=== PATIENT | female | born 1955 | race Caucasian/White ===

== ENCOUNTER → 2017-11-23 14:17 | Outpatient (CLI) | payer MEDICAID, SELFPAY ==
--- NOTE | 2017-11-23 16:11 | DI.REPORT_ITS ---
SYMPTOM/DIAGNOSIS: RT FOOT PAIN, M79.671 RIGHT FOOT: The patient is status post talonavicular fusion. Compression screw is in place. The distal portion of an intramedullary tibial adilene is identified and protrudes through the base of the calcaneus. Fusion of the talocalcaneal joint is evident. There is soft tissue swelling over the lateral portion of the foot at the level of the metatarsal phalangeal joint. Post surgical changes involving the heads of the fourth and fifth metatarsals are identified. There is no evidence of a superimposed acute fracture or dislocation.
== END ==
PROVIDERS: PCP Family Medicine; Visit Provider Podiatrist Foot & Ankle Surgery
DX: M79.671 Pain in right foot (principal); Z98.1 Arthrodesis status
CPT/HCPCS: 73630

== ENCOUNTER → 2017-12-03 16:53 | Outpatient (REF) | payer MEDICAID, SELFPAY | LOC: NCHCN 16:53 | PROVIDERS: PCP Family Medicine; Visit Provider Family Medicine | DX: R10.9 Unspecified abdominal pain (principal) | CPT/HCPCS: 87086 ==

== ENCOUNTER → 2017-12-15 01:57 | Outpatient (CLI) | payer MEDICAID, SELFPAY ==
--- NOTE | 2017-12-15 15:15 | DI.REPORT_ITS ---
SYMPTOMS/DIAGNOSIS: PAIN IN LEFT FOOT, M79.672 LEFT FOOT: The bony structures are normally mineralized. There is no evidence of a fracture or dislocation. Multiple sesamoid bones are demonstrated adjacent to the head of the 1st metatarsal. There are minimal degenerative changes involving the 1st metatarsophalangeal joint and note is made of a small calcaneal spur.
== END ==
PROVIDERS: PCP Family Medicine; Visit Provider Podiatrist Foot & Ankle Surgery
DX: M79.672 Pain in left foot (principal); M77.32 Calcaneal spur, left foot; M25.872 Other specified joint disorders, left ankle and foot; M19.072 Primary osteoarthritis, left ankle and foot
CPT/HCPCS: 73630

== ENCOUNTER 2018-03-25 18:05 | Outpatient (REF) | payer MEDICAID, SELFPAY | END 2018-03-25 18:25 | LOC: NCHCN 18:05 | PROVIDERS: PCP Family Medicine; Visit Provider Family Medicine | DX: R10.9 Unspecified abdominal pain (principal) | CPT/HCPCS: 87086 ==

== ENCOUNTER 2018-05-20 17:17 | Outpatient (REF) | payer MEDICAID, SELFPAY | END 2018-05-20 17:37 | LOC: NCHCN 17:17 | PROVIDERS: PCP Family Medicine; Visit Provider Family Medicine | DX: R10.9 Unspecified abdominal pain (principal) | CPT/HCPCS: 87086 ==

== ENCOUNTER 2018-07-15 16:43 | Outpatient (REF) | payer MEDICAID, SELFPAY ==
[2018-07-15 20:05] LABS: Bacteria Rare HPF (Negative); C & S Indicated? No; Casts Negative LPF (Negative); Crystals Negative HPF (Negative); Epithelial Cells Rare HPF (Negative); Mucus Negative (Negative); Other Cells Negative (Negative); RBC 0-2 (0-2)
[2018-08-10 16:29] LABS: Propoxyphene (Darvon) Negative
== END 2018-07-15 17:03 ==
LOC: NCHCN 16:43
PROVIDERS: PCP Family Medicine; Visit Provider Family Medicine
DX: N39.0 Urinary tract infection, site not specified (principal)
CPT/HCPCS: 82542; 81015

== ENCOUNTER 2018-12-07 15:12 | Outpatient (REF) | payer MEDICAID, SELFPAY ==
[2018-12-07 20:21] LABS: BUN 11 mg/dL (7-18); CREATININE 0.67 mg/dL (0.55-1.02)
== END 2018-12-07 15:32 ==
LOC: NCHCN 15:12
PROVIDERS: PCP Family Medicine; Visit Provider Nurse Practitioner Psychiatric/Mental Health
DX: F41.9 Anxiety disorder, unspecified (principal); F43.10 Post-traumatic stress disorder, unspecified
CPT/HCPCS: 84520; 82565

== ENCOUNTER 2018-12-24 12:11 | Emergency (ER) | payer MEDICAID, SELFPAY ==
[2018-12-24 12:44] VITALS: BP 131/72; PULSE 80; RESP 18; TEMP 36.9; O2SAT 95
--- NOTE | 2018-12-24 13:10 | DI.RAD_ITS ---
SYMPTOM/DIAGNOSIS: FELL, ANTERIOR PAIN LEFT KNEE: Three views were obtained. There is narrowing of the medial tibiofemoral cartilaginous joint space. Marginal osteophyte formation noted involving the joints of the knee. There may be a knee joint effusion. No evidence of acute fracture.
--- NOTE | 2018-12-24 13:11 | W.ED.GENAD ---
Discharge Plan Disposition Patient Disposition: HOME Condition: Improving Discharge Details Chief Complaint: Orthopedic Clinical Impression: Osteoarthritis of knee Primary Care Provider: Jaquelin Hastings V ED Provider: Jonathon Plunkett Home Meds and New Rx's Prescriptions: Continued multivitamin 1 EACH capsule 1 ea PO DAILY RF: 0 lactulose 20 GM/30 ML solution 45 g PO BID RF: 0 Narcan 4 MG spray,non-aerosol 4 mg NS PRN Qty: 2 RF: 0 Loratadine 10 MG TAB.RAPDIS 10 mg PO DAILY RF: 0 methadone 10 MG tablet 40 mg PO .Q EARLY AFTERNOON RF: 0 methadone 10 MG tablet 50 mg PO TID RF: 0 ondansetron HCl 4 MG tablet 4 mg PO DIRECTED PRNRF: 0 oxycodone 15 MG tablet 30 mg PO QID PRNRF: 0 meclizine 25 MG tablet 25 mg PO DAILY PRNRF: 0 albuterol sulfate 8.5 GM HFA aerosol inhaler 2 puff Inhalation QID PRN PRNRF: 0 diclofenac sodium [Voltaren] 100 GM gel 1 ea Topical DIRECTED RF: 0 clonazepam [Klonopin] 0.5 mg Tablet 0.5 mg PO BID PRNRF: 0 clonazepam [Klonopin] 0.5 mg Tablet 0.5 mg PO QID RF: 0 mirtazapine 7.5 mg Tablet 7.5 mg PO QHS RF: 0 nicotine 14 mg/24 hr Patch 24 Hour 1 patch TRANSDERMAL DAILY RF: 0 Discharge Instructions Instructions: Hinged Knee Brace (ED) Additional Instructions: May use crutches as needed. Wear hinged knee brace for comfort and stability. We have referred you to orthopedics given Dr. Diop's recent jail. Please call the office at [phone] for an appointment time. Continue your regular medications including Voltaren and oral medications. May apply ice to area to reduce discomfort. Discharge Data Discharge Date/Time-TO BE ENTERED AT DEPARTURE: 12/24/18 14:31 Medical Decision Making 63-year-old female presents from home stating that she is had 3 falls onto a flexed left knee, landing on the patella over the past 2 weeks. Now with ongoing pain. States she recently missed joint injection with Dr. Diop as she was recovering from abdominal surgery which was uneventful. She arrives with normal vital signs, diffuse anterior tenderness over the left knee, and no evidence of motor or sensory dysfunction. X-ray reveals degenerative arthritic changes without evidence of fracture or malalignment. No effusion appreciated. May have a component of sciatica, most consistent with exacerbation of arthritis, particularly given the patient's recent missed joint injection. She has long-standing chronic pain and is on liberal amounts of outpatient opiates. She also does take diclofenac gel. Patient provided with hinged knee brace and crutches to be used as needed for crutch walking. We will refer her to [facility] orthopedics given Dr. Diop's recent jail. [facility] General Mode of arrival: ambulatory. Date/Time Provider Initiated Documentation: 12/24/18 12:58. Limitations to Documentation: no limitations. History of Present Illness described as moderate, Quality is described as dull, and is localized to the lower extremity. Patient reports no radiation. Patient started experiencing this day(s) and it has been constant. Rest improves symptom(s), Movement worsens symptoms . Patient notes no other symptoms.; denies syncope and weakness. Patient did receive the following treatments prior to arrival, other (Home analgesics) Related Data Home Medications Medication Instructions Recorded Confirmed albuterol sulfate 2 puff INHALATION QID PRN PRN 05/12/13 12/24/18 diclofenac sodium [Voltaren] 1 ea TOPICAL DIRECTED 05/12/13 12/24/18 meclizine 25 mg PO DAILY PRN 05/12/13 12/24/18 methadone 40 mg PO .Q EARLY AFTERNOON 05/12/13 12/24/18 methadone 50 mg PO TID 05/12/13 12/24/18 ondansetron HCl 4 mg PO DIRECTED PRN 05/12/13 12/24/18 oxycodone 30 mg PO QID PRN 05/12/13 12/24/18 Loratadine 10 mg PO DAILY tab-cap 12/16/17 12/24/18 Narcan 4 mg NS PRN #2 spray 12/16/17 12/24/18 lactulose 45 g PO BID ml 12/16/17 12/24/18 multivitamin 1 ea PO DAILY 12/16/17 12/24/18 clonazepam [Klonopin] 0.5 mg PO BID PRN 12/24/18 12/24/18 clonazepam [Klonopin] 0.5 mg PO QID 12/24/18 12/24/18 mirtazapine 7.5 mg PO QHS 12/24/18 12/24/18 nicotine 1 patch TRANSDERMAL DAILY 12/24/18 12/24/18 Allergies Allergy/AdvReac Type Severity Reaction Status Date / Time venom-honey bee Allergy Severe Unverified 12/24/18 12:51 [bee venom (honey bee)] codeine [Codeine] Allergy Intermediate Skin Rash Unverified 12/24/18 12:51 gabapentin [From Neurontin] AdvReac Intermediate gi upset Unverified 12/24/18 12:51 morphine AdvReac Intermediate n/v/d Unverified 12/24/18 12:51 pregabalin [From Lyrica] AdvReac Intermediate gi upset Unverified 12/24/18 12:51 General Stated Complaint: Orthopedic MUSA: 3 Review of Systems Review of Systems 6 systems reviewed and otherwise negative. No neck/back discomfort. No headache. Denies syncope or chest pain. Recovering from esophageal surgery 6 weeks ago. [facility] Medical History Anxiety Asthma not active Bilateral radicular pain upper extremities Chronic pain Fibromyalgia GERD (gastroesophageal reflux disease) Hepatitis C Hypertension Hyperthyroidism Irritable bowel syndrome (IBS) Kidney stones Sleep apnea Surgical History Cholecystectomy (~12/2013) Social History Smoking/Tobacco Use Status: Current every day Tobacco Type: cigarettes Alcohol Intake: never Drug use: Daily Details: CBD oil with THC Do you feel safe at home: Yes Do you feel safe in your relationship?: Yes Exam Narrative Exam Narrative: GEN: awake, alert, oriented 3. Pleasant, well groomed, interactive. HEAD: Normocephalic, atraumatic ENT: Mucous membranes moist, oropharynx unremarkable, External ear exam unremarkable EYES: PERRL, EOMI NECK: Full ROM, no KARINA, no menigismus CHEST/RESP: Nontender ABDOMEN: Soft, nontender, no mass. +Bowel sounds EXT: Full ROM, no edema, no rash. Left knee with anterior tenderness. No laxity. Motor rated 5 out of 5 and sensation is intact throughout including saddle distribution Neuro: Grossly normal neurologic exam, conversant, interactive. Psych: Speech fluent, thoughts congruent, affect normal Course Vital Signs Temperature 36.9 C 12/24/18 12:44 Pulse 80 12/24/18 12:44 Respiratory Rate 18 12/24/18 12:44 Blood Pressure 131/72 12/24/18 12:44 Pulse Oximetry 95 12/24/18 12:44 Temperature 36.9 C 12/24/18 12:44 Temperature Source Temporal Artery Scan 12/24/18 12:44 Pulse 80 12/24/18 12:44 Respiratory Rate 18 12/24/18 12:44 Respiratory Effort Non-Labored 12/24/18 12:49 Blood Pressure 131/72 12/24/18 12:44 Blood Pressure Position Sitting 12/24/18 12:44 Pulse Oximetry 95 12/24/18 12:44 Oxygen Delivery Method Room Air 12/24/18 12:44 Oxygen Flow Rate 0 12/24/18 12:44 Pain Level 9 12/24/18 12:44
--- NOTE | 2018-12-24 13:57 | DI.VRAD_ITS ---
EXAM: XR Left Knee EXAM DATE/TIME: 12/24/2018 1:11 PM CLINICAL HISTORY: 63 years old, female; Other: Fall, anterior pain TECHNIQUE: Imaging protocol: XR Left knee. Views: 3 views. COMPARISON: CR LEFT KNEE 3 VIEW COMPLETE 01/27/2017 2:59 PM FINDINGS: Mild medial joint space narrowing consistent with early degenerative arthritis in keeping with the patient's age. The bony structures are in anatomic alignment. No fracture is present. No radiopaque foreign body is identified. The joint spaces are well maintained. IMPRESSION: No evidence of acute bony abnormality. Dictated and Authenticated by: Sam Byrne MD. Ordering:HIRO Holt MD
[2018-12-24 14:32] VITALS: BP 131/72; PULSE 80; RESP 18; TEMP 36.9; O2SAT 95
== END 2018-12-24 14:31 | disposition home or self-care (01) ==
PROVIDERS: Emergency Provider Emergency Medicine; PCP Family Medicine
DX: M17.12 Unilateral primary osteoarthritis, left knee (principal); W19.XXXA Unspecified fall, initial encounter; R29.6 Repeated falls; I10 Essential (primary) hypertension
CPT/HCPCS: 29505; 73562; 99283; E0114; L1820

== ENCOUNTER 2019-01-30 01:08 | Outpatient (CLI) | payer MEDICAID, SELFPAY ==
--- NOTE | 2019-01-30 09:55 | DI.MRI_ITS ---
EXAM: MR LOWER JOINT LT WO CLINICAL HISTORY: acute meniscal vs chondral injury, internal derangement lt knee, M23.92. TECHNIQUE: Multiplanar multisequence MRI was performed. COMPARISON: No exams were available for comparison FINDINGS: MR examination knee was performed according to the usual protocol. There is a small knee joint effus ion. There is abnormal signal of the posterior aspect the proximal tibia consistent with a bony trab ecular injury and subtle areas abnormal signal are also seen in the medial femoral condyle posteriorl y. Mildly abnormal signal also seen in the patella. Articular cartilage of medial and lateral tibial femoral joints appears fairly symmetrically thinned. Thinning of patellar articular cartilage also noted particularly of the inferior pole of the patell a. Cruciate ligaments appear intact with mildly abnormal signal and anterior cruciate, nonspecific. Lateral meniscus appears intact. Medial meniscus is torn in the body and posterior horn and probabl y at the posterior attachment as well. No significant collateral ligament injury seen. IMPRESSION: Findings consistent with bony trabecular injuries of tibia and medial femoral condyle posteriorly, tr icompartment degenerative change, nondisplaced medial meniscal tear.
== END 2019-01-30 01:28 ==
PROVIDERS: PCP Family Medicine; Visit Provider Student in an Organized Health Care Education/Training Program
DX: M25.562 Pain in left knee (principal); M23.92 Unspecified internal derangement of left knee; S83.242A Other tear of medial meniscus, current injury, left knee, initial encounter; M17.12 Unilateral primary osteoarthritis, left knee; M79.672 Pain in left foot; M19.072 Primary osteoarthritis, left ankle and foot
CPT/HCPCS: 73721

== ENCOUNTER 2019-01-30 01:10 | Outpatient (CLI) | payer MEDICAID, SELFPAY ==
--- NOTE | 2019-01-30 10:15 | DI.RAD_ITS ---
EXAM: XR FOOT LT COMPLETE INDICATION: LT FOOT PAIN, M79.672. COMPARISON: No exams were available for comparison TECHNIQUE: 2D digital imaging was performed. FINDINGS: Three views were obtained. There is a prominent osteophyte of the site of attachment of the plantar fascia on the calcaneus. Minimal degenerative changes the midfoot and IP joints noted. No other sig nificant bony abnormality seen. IMPRESSION: Mild DJD of midfoot and forefoot joints.
== END 2019-01-30 01:30 ==
PROVIDERS: PCP Family Medicine; Visit Provider Family Medicine
DX: M79.672 Pain in left foot (principal); M19.072 Primary osteoarthritis, left ankle and foot
CPT/HCPCS: 73630

== ENCOUNTER 2019-10-26 00:18 | Outpatient (CLI) | payer MEDICAID, SELFPAY ==
--- NOTE | 2019-10-26 | DI.MAMMO_ITS ---
EXAM: MAMMO SCREENING CLINICAL HISTORY: SCREENING, Z12.31, PREVENTATIVE, Z00.00 TECHNIQUE: Mammograms were interpreted according to the usual protocol including computer analysis w [employer] CAD system, tomosynthesis and C-view imaging. COMPARISON: 2010 and 2016 FINDINGS: The breasts are composed of mainly fatty density , Breast Density category A. No suspicious masses or suspicious microcalcifications are seen. No skin thickening or abnormal axillary lymph nodes are seen. There has been no significant change from prior exams. IMPRESSION: BI-RADS Category 1, negative. Yearly screening mammography is recommended. Breast Density Category A, fatty density.
--- NOTE | 2019-10-26 13:00 | DI.CTLCSR_ITS ---
EXAM: CT CHEST LUNG CANCER SCREEN CLINICAL HISTORY: The patient reportedly has a History of Smoking 30 pack years and presently smokes or has quit the past 15 years. TECHNIQUE: Imaging Protocol: Axial computed tomography images with coronal and sagittal reformatted images were created and reviewed COMPARISON: CT CHEST - LUNG CANCER SCREENING from 10/23/2016 FINDINGS: Tracheobronchial tree: Patent where visualized. Mediastinum and Shira: Stable small mediastinal lymph nodes. Pulmonary parenchyma: No consolidation. [id number] centrilobular and paraseptal emphysematous changes greater in the upper lobes.. Lung Nodules: New 5 millimeter nodule in the medial right upper lobe. Pleura: No effusion or pneumothorax. Heart: The heart is not dilated. Minimal coronary artery calcifications are seen. Aorta: Thoracic aorta non-dilated.Minimal calcification. Upper abdomen: Status post cholecystectomy. Bones: Severe degenerative changes in the lower cervical spine and lower thoracic spine. Scoliosis. Soft Tissues: Unremarkable. IMPRESSION: New 5 millimeter nodule in the medial right upper lobe. Lung RADS Cat 3 - Probably Benign: Probably benign finding(s) -6 month follow-up suggested; include n odules with a low likelihood of becoming a clinically active cancer. Lung-RADS 1.0 CATEGORIES: Category 0 - Prior chest CT exam(s) being located for comparison. Category 1 - Annual screening in 12 months. No nodules or definitely benign nodules. Category 2 - Annual screening in 12 months. Benign appearance. Nodules with low likelihood of becomin g active cancer. Category 3 - 6-month follow-up. Probably benign. Short-term follow-up suggested. Nodules with low lik elihood of becoming active cancer. Category 4A - 3-month follow-up and CT/PET if >8 mm in size. Suspicious finding. Findings which requi re additional testing. Category 4B - Findings which require additional testing and tissue sampling. Suspicious finding. C Added to Any of the Above - History of prior lung cancer screening. S Added to Any of the Above - Significant unexpected other finding. RADIATION DOSE DELIVERED: Total DLP DATA REPOSITORY: All CT scans at this facility are submitted to the National Radiology Data Registry (NRDR) Dose Index Registry (DIR) with the [employer] (ACR). RADIATION OPTIMIZATION: All CT scans at this facility use at least one of these dose optimization te chniques: automated exposure control; mA and/or kV adjustment per patient size (includes targeted exa ms where dose is matched to clinical indication); or iterative reconstruction.
--- NOTE | 2019-10-26 13:20 | DI.RAD_ITS ---
EXAM: XR WRIST LT COMPLETE CLINICAL HISTORY: WRIST JOINT PAIN LT, M25.532. TECHNIQUE: 2D digital imaging was performed. COMPARISON: No exams were available for comparison FINDINGS: BONES: No acute fracture is present. No bony destructive lesion is seen. JOINTS: The carpal bones are normally aligned. There are mild degenerative changes at the distal ra dial ulnar joint, radiocarpal joint and 1st carpal metacarpal joint. SOFT TISSUE: Normal. IMPRESSION: Mild degenerative changes. DATA REPOSITORY: RADIATION DOSE DELIVERED:
--- NOTE | 2019-10-26 13:20 | DI.RAD_ITS ---
EXAM: XR FOREARM LT CLINICAL HISTORY: WRIST JOINT PAIN LT, M25.532. TECHNIQUE: 2D digital imaging was performed. COMPARISON: No exams were available for comparison FINDINGS: BONES: No acute fracture is present. No bony destructive lesion is seen. Visualized portion of elbow and wrist joints are unremarkable. SOFT TISSUE: Normal. IMPRESSION: Unremarkable radiographs of the left forearm. DATA REPOSITORY: RADIATION DOSE DELIVERED:
== END 2019-10-26 00:38 ==
PROVIDERS: PCP Family Medicine; Visit Provider Family Medicine
DX: Z12.31 Encounter for screening mammogram for malignant neoplasm of breast (principal); M25.532 Pain in left wrist; M19.042 Primary osteoarthritis, left hand; Z12.2 Encounter for screening for malignant neoplasm of respiratory organs; R91.1 Solitary pulmonary nodule; J43.8 Other emphysema
CPT/HCPCS: 77063; 77067; G0297; 73090; 73110

== ENCOUNTER 2020-05-09 18:31 | Outpatient (REF) | payer MEDICAID, SELFPAY ==
[2020-05-09 19:35] LABS: Bilirubin Negative (Negative); Blood Negative (Negative); Clarity Clear (Clear); Glucose Negative (Negative); Ketones Negative (Negative); Leukocyte Esterase Small (Negative); Nitrite Negative (Negative)
[2020-05-09 19:45] LABS: Bacteria Few HPF (Negative); C & S Indicated? No/Sq. Contamination; Casts Negative LPF (Negative); Crystals Negative HPF (Negative); Epithelial Cells Moderate HPF (Negative); Mucus Negative (Negative); Other Cells Negative (Negative); RBC Negative HPF (0-2)
[2020-05-16 08:34] LABS: Codeine Negative ng/mL (Cutoff: 25); Dihydrocodeine Negative ng/mL (Cutoff: 25); Hydrocodone Negative ng/mL (Cutoff: 25); Hydromorphone Negative ng/mL (Cutoff: 25); Morphine Negative ng/mL (Cutoff: 25); Naloxone Negative ng/mL (Cutoff: 25); Norhydrocodone Negative ng/mL (Cutoff: 25); Noroxycodone 12040 ng/mL (Cutoff: 25); Noroxymorphone 406 ng/mL (Cutoff: 25); Opiates Interpretation Positive.
== END 2020-05-09 18:51 ==
LOC: NCHCN 18:31
PROVIDERS: PCP Family Medicine; Visit Provider Family Medicine
DX: N39.0 Urinary tract infection, site not specified (principal); Z51.81 Encounter for therapeutic drug level monitoring
CPT/HCPCS: 80361; 80362; 81003; 81015

== ENCOUNTER 2020-07-24 12:31 | Outpatient (REF) | payer MEDICAID, SELFPAY ==
[2020-07-24 16:03] LABS: Bilirubin Negative (Negative); Blood Negative (Negative); Clarity Clear (Clear); Glucose Negative (Negative); Ketones Negative (Negative); Leukocyte Esterase Negative (Negative); Nitrite Negative (Negative); Specific Gravity 1.025 (1.005-1.025)
== END 2020-07-24 12:32 | disposition home or self-care (01) ==
LOC: NCHCN 12:31
PROVIDERS: PCP Family Medicine; Visit Provider Family Medicine
DX: N39.0 Urinary tract infection, site not specified (principal)
CPT/HCPCS: 81003

== ENCOUNTER 2020-07-30 01:31 | Outpatient (CLI) | payer MEDICAID, SELFPAY ==
--- NOTE | 2020-07-30 13:00 | DI.CT_ITS ---
EXAM: CT CHEST WO CLINICAL HISTORY: F/U LUNG NODULE, R91.8, 6 MONTH FOLLOW UP TECHNIQUE: Imaging Protocol: Axial computed tomography images with coronal and sagittal reformatted images were created and reviewed COMPARISON: CT CT CHEST LUNG CANCER SCREEN from 10/26/2019 FINDINGS: Tracheobronchial tree: Patent where visualized. Pulmonary parenchyma: No consolidation or dominant measurable mass. [id number] centrilobular an d paraseptal emphysema. Lung Nodules: There is against seen in nodule in the right upper lobe which now measures 6.5 mm. Thi s compares with 5.4 mm on the prior examination. No new pulmonary nodules are identified. Mediastinum and Shira: Stable small mediastinal lymph nodes. Small hiatal hernia. Pleura: No effusion or pneumothorax. Heart: The heart is not dilated. Mild coronary artery calcification. No pericardial effusion. Aorta: Thoracic aorta non-dilated.Mild atherosclerosis. Upper abdomen: Fatty liver. Status post cholecystectomy. Soft Tissues: Unremarkable. Bones: Within normal limits. IMPRESSION: 1. Slight interval increase in size of the right upper lobe pulmonary nodule which now measures 6.5 m m. No other pulmonary nodules are identified. 2. Mild to moderate pulmonary emphysema. 3. Fatty liver. Lung RADS Cat 4A - Suspicious: Findings for which additional diagnostic testing and/or tissue samplin g recommended Lung-RADS 1.0 CATEGORIES: Category 0 - Prior chest CT exam(s) being located for comparison. Category 1 - Annual screening in 12 months. No nodules or definitely benign nodules. Category 2 - Annual screening in 12 months. Benign appearance. Nodules with low likelihood of becomin g active cancer. Category 3 - 6-month follow-up. Probably benign. Short-term follow-up suggested. Nodules with low lik elihood of becoming active cancer. Category 4A - 3-month follow-up and CT/PET if >8 mm in size. Suspicious finding. Findings which requi re additional testing. Category 4B - Findings which require additional testing and tissue sampling. Suspicious finding. Modifier S- Potentially clinically significant finding. (Non lung cancer) RADIATION DOSE DELIVERED: 806.72mGy.cm Total DLP 806.72mGy.cm Total DLP 806.72mGy.cm Total DLP DATA REPOSITORY: All CT scans at this facility are submitted to the National Radiology Data Registry (NRDR) Dose Index Registry (DIR) with the [employer] (ACR). RADIATION OPTIMIZATION: All CT scans at this facility use at least one of these dose optimization te chniques: automated exposure control; mA and/or kV adjustment per patient size (includes targeted exa ms where dose is matched to clinical indication); or iterative reconstruction.
--- NOTE | 2020-07-30 13:26 | DI.RAD_ITS ---
EXAM: XR LUMBAR SPINE COMPLETE CLINICAL HISTORY: LOW BACK PAIN, M54.5. TECHNIQUE: 2D digital imaging was performed. COMPARISON: No exams were available for comparison FINDINGS: There are 5 lumbar type vertebral bodies. No spondylolysis or spondylolisthesis. There is disc spac e narrowing at T12-L1, L1-L2 and L2-L3. Endplate osteophytes are seen throughout the lumbar spine. No acute fractures or subluxations are seen. Degenerative changes of the facets are seen in the lowe r lumbar spine. Vascular calcifications are present. Surgical clips are seen in the right upper rita drant of the abdomen. IMPRESSION: Moderately severe degenerative changes in the lumbar spine. DATA REPOSITORY: RADIATION DOSE DELIVERED:
== END 2020-07-30 01:51 ==
PROVIDERS: PCP Family Medicine; Visit Provider Family Medicine
DX: R91.1 Solitary pulmonary nodule (principal); M54.5 Low back pain; M51.37 Other intervertebral disc degeneration, lumbosacral region; J43.8 Other emphysema
CPT/HCPCS: 71250; 72110

== ENCOUNTER 2020-09-02 03:21 | Outpatient (CLI) | payer MEDICAID, SELFPAY ==
[2020-09-02 11:29] LABS: HCT 44.3 % (36.0-46.0); HGB 14.4 g/dL (11.2-15.7); MCH 30.5 pg (27.0-33.0); MCHC 32.5 % (32.0-36.0); MCV 93.9 fL (80-95); MPV 9.5 fL (8.0-11.0); Platelet Count 173 10^3/uL (130-400); RBC 4.72 10^6/uL (3.93-5.22); RDW 12.8 % (11.7-14.6); RDW-SD 44.4 fL; WBC 7.73 10^3/uL (4.4-10.8)
[2020-09-02 11:37] LABS: Hemoglobin A1C 5.6 % (<5.7)
[2020-09-02 12:36] LABS: ALT 33 U/L (14-59); AST 27 U/L (15-37); Albumin 3.7 g/dL (3.4-5.0); Alkaline Phosphatase 96 U/L (46-116); Anion Gap 4.1 mmol/L (3-11); BUN 14 mg/dL (7-18); Bilirubin, Total 0.3 mg/dL (0.2-1.0); C-Reactive Protein 1.84 mg/dL (0.0-0.3); CO2 33.9 mmol/L (21.0-32.0); CREATININE 0.8 mg/dL (0.55-1.02); Calcium 9.3 mg/dL (8.5-10.1); Chloride 103 mmol/L (98-107); Glucose 102 mg/dL (74-106); Potassium 4.3 mmol/L (3.5-5.1); Sodium 141 mmol/L (136-145); TSH (W/Ref FT4) 2.63 uIU/mL (0.36-3.74)
[2020-09-02 14:57] LABS: ESR 16 mm/hr (0-30)
== END 2020-09-02 03:22 | disposition home or self-care (01) ==
LOC: LBO 03:22
PROVIDERS: PCP Family Medicine; Visit Provider Family Medicine
DX: R73.03 Prediabetes (principal); E05.90 Thyrotoxicosis, unspecified without thyrotoxic crisis or storm; R10.12 Left upper quadrant pain; R07.81 Pleurodynia
CPT/HCPCS: 36415; 80053; 85027; 85652; 83036; 84443; 86140

== ENCOUNTER 2020-11-07 00:52 | Outpatient (CLI) | payer MEDICAID, SELFPAY ==
--- NOTE | 2020-11-07 | DI.CTLCSR_ITS ---
Exam(s) CT CHEST LUNG CANCER SCREEN EXAM: CT CHEST LUNG CANCER SCREEN CLINICAL HISTORY: SCREENING FOR LUNG CA, CURRENT SMOKER, F17.210. TECHNIQUE: Imaging Protocol: Low Dose Technique CONTRAST MATERIAL: None COMPARISON: CT CT CHEST LUNG CANCER SCREEN from 10/26/[address] CHEST LUNG CANCER SCREEN from 10/26/[address] CHEST WO from 07/30/[address] CHEST WO from 07/30/2020 FINDINGS: CHEST: LUNGS: Size of the nodule in the medial aspect of the right upper lobe exhibits perhaps minimal if an y significant increase in size when compared to October 2019 and July 2020. There are no other right l barbara nodules,, however, there are mild increased markings in the subpleural posterior basal segment ri ght lower lobe, more so than previous. No pleural effusion. In the opposite-left lung there are no significant focal findings in the upper lobe and lingular segm ent. There are mild subpleural benign-appearing increased markings in the medial base posterior basa l segment. No associated pleural effusion MEDIASTINUM: There is no obvious hilar nor mediastinal adenopathy. CARDIAC: Heart size is normal. There is no pericardial effusion.Caliber of the thoracic aorta is wit hin normal limits. OTHER: OSSEOUS: No significant osseous lesions.. IMPRESSION: 1. Relatively stable appearance of the solitary small nodular density in the medial aspect of the rig ht upper lobe with minimal change from October 2019 and July 2020. recommend follow-up CT scan in 6 mon ths. 2. There are new increased subpleural markings in the posterior basal segment of the right lower lobe which have benign appearance, possibly infectious. Lesser amount of the same in the posterior basal segment of the left lower lobe. There are no pleural effusions. No intrathoracic adenopathy 3. Lung RADS Cat 3 - Probably Benign: Probably benign finding(s) - short term follow-up suggested; in clude nodules with a low likelihood of becoming a clinically active cancer. Lung-RADS 1.0 CATEGORIES: Category 0 - Prior chest CT exam(s) being located for comparison. Category 1 - Annual screening in 12 months. No nodules or definitely benign nodules. Category 2 - Annual screening in 12 months. Benign appearance. Nodules with low likelihood of becomin g active cancer. Category 3 - 6-month follow-up. Probably benign. Short-term follow-up suggested. Nodules with low lik elihood of becoming active cancer. Category 4A - 3-month follow-up and CT/PET if >8 mm in size. Suspicious finding. Findings which requi re additional testing. Category 4B - Findings which require additional testing and tissue sampling. Modifier S- Potentially clinically significant findings (non lung cancer) RADIATION DOSE DELIVERED: 68.71mGy.cm Total DLP 1.84mGy CTDIvol DATA REPOSITORY: All CT scans at this facility are submitted to the National Radiology Data Registry (NRDR) Dose Index Registry (DIR) with the [employer] (ACR). RADIATION OPTIMIZATION: All CT scans at this facility use at least one of these dose optimization te chniques: automated exposure control; mA and/or kV adjustment per patient size (includes targeted exa ms where dose is matched to clinical indication); or iterative reconstruction.
== END 2020-11-07 01:12 ==
PROVIDERS: PCP Family Medicine; Visit Provider Family Medicine
DX: Z12.2 Encounter for screening for malignant neoplasm of respiratory organs (principal); R91.8 Other nonspecific abnormal finding of lung field; F17.210 Nicotine dependence, cigarettes, uncomplicated
CPT/HCPCS: 71271

== ENCOUNTER 2021-01-03 16:12 | Outpatient (REF) | payer MEDICAID, SELFPAY ==
[2021-01-08 10:29] LABS: Codeine Negative ng/mL (Cutoff: 25); Dihydrocodeine Negative ng/mL (Cutoff: 25); Hydrocodone Negative ng/mL (Cutoff: 25); Hydromorphone Negative ng/mL (Cutoff: 25); Morphine Negative ng/mL (Cutoff: 25); Naloxone Negative ng/mL (Cutoff: 25); Norhydrocodone Negative ng/mL (Cutoff: 25); Noroxycodone 8772 ng/mL (Cutoff: 25); Noroxymorphone 383 ng/mL (Cutoff: 25); Opiates Interpretation Positive.
== END 2021-01-03 16:13 | disposition home or self-care (01) ==
LOC: NCHCN 16:12
PROVIDERS: PCP Family Medicine; Visit Provider Family Medicine
DX: G89.4 Chronic pain syndrome (principal); Z51.81 Encounter for therapeutic drug level monitoring
CPT/HCPCS: 80361; 80362; 80365

== ENCOUNTER 2021-04-10 02:16 | Outpatient (CLI) | payer MEDICAID, SELFPAY ==
--- NOTE | 2021-04-10 12:30 | DI.CT_ITS ---
Exam(s) CT CHEST WO EXAM: CT CHEST WO CLINICAL HISTORY: LUQ PAIN,R10.12,LUNG NODULE,R91.8 TECHNIQUE: Imaging Protocol: Axial computed tomography images with coronal and sagittal reformatted images were created and reviewed CONTRAST MATERIAL: Intravenous: Omnipaque 350 Contrast volume:structured data in ml. COMPARISON: CT CHEST - LUNG CANCER SCREENING from 10/23/[address] CHEST LUNG CANCER SCREEN from 10/26/[address] CHEST LUNG CANCER SCREEN from 10/26/[address] CHEST WO from 07/30/[address] CHEST LUNG CANCER SCREEN from 11/07/2020 FINDINGS: Tracheobronchial tree: No bronchiectasis or mucous plugging. Mediastinum and Shira: No dominant adenopathy or fluid collection. Pulmonary parenchyma: Mild emphysematous changes. No consolidation or dominant measurable mass. No v isible change in size or appearance of the right upper lobe nodule, measuring 7 x 6 x 5 millimeters c ompared with the most recent exam. Size is increased when compared with 2019... Pleura: No effusion or pneumothorax. Heart: The heart is not dilated. No coronary artery calcifications are seen. Aorta: Thoracic aorta non-dilated. Upper abdomen: Fatty liver. Prior cholecystectomy. Large quantity of stool visible in the visualiz ed portions of the colon. Lymph nodes: Stable small mediastinal and axillary lymph nodes. Bones: Degenerative disc changes, greatest in the lower cervical and upper lumbar region. Small hiatal hernia. Soft tissues: Unremarkable. IMPRESSION: Stable size and appearance of right upper lobe nodule.. Recommend follow-up low dose screening CT 6 months. BI-RADS Cat 3 - 6 month - Probably Benign Finding: Recommend follow-up imaging in 6 months RADIATION DOSE DELIVERED: 681.85mGy.cm Total DLP DATA REPOSITORY: All CT scans at this facility are submitted to the National Radiology Data Registry (NRDR) Dose Index Registry (DIR) with the [employer] (ACR). RADIATION OPTIMIZATION: All CT scans at this facility use at least one of these dose optimization te chniques: automated exposure control; mA and/or kV adjustment per patient size (includes targeted exa ms where dose is matched to clinical indication); or iterative reconstruction.
[2021-04-10 13:01] LABS: CREATININE 0.8 mg/dL (0.55-1.02); Vitamin B12 292 pg/mL (193-986)
--- NOTE | 2021-04-10 13:30 | DI.CT_ITS ---
Exam(s) CT ABDOMEN PELVIS W EXAM: CT ABDOMEN PELVIS W CLINICAL HISTORY: LUQ PAIN, R10.12. TECHNIQUE: Imaging Protocol: Axial computed tomography images with coronal and sagittal reformatted images were created and reviewed CONTRAST MATERIAL: Intravenous: Omnipaque 350 Contrast volume:100 ml Oral: no COMPARISON: CT RENAL COLIC WO CONTRAST from 08/23/2010 CT RENAL COLIC WO CONTRAST from 08/23/2010 FINDINGS: ABDOMEN: Lung Bases: Normal where visualized. Small hiatal hernia. Liver: Moderate fatty infiltration.. No measurable mass. Gallbladder and biliary tract: Status post cholecystectomy. No radiodense calculus. Mild biliary di latation, within normal limits status post cholecystectomy. Pancreas: Normal density, no abnormal calcifications or inflammatory process. Stomach: Small hiatal h ernia. Stomach not distended. Spleen: Normal. Kidneys: Normal size, contour and axis. No radiodense stones or obstructive uropathy. No masses seen. Small bilateral cysts. Adrenal glands: No masses seen. Abdominal Aorta: Abdominal portion non-dilated. Atherosclerotic changes. PELVIS: Bladder: No gross wall thickening. No calculi.No focal mass. Bowel: Large quantity of stool seen from the cecum through mid transverse colon. Distal colon is dec ompressed. Small amount of stool in the rectum. No obstruction or bowel wall thickening. Appendix n ormal. Peritoneal cavity: No ascites, collection or mesenteric inflammatory response. Bones: Degenerative disc changes. No compression fracture. Reproductive organs: Status post hysterectomy. Lymph nodes: Unremarkable. Impression: Increased quantity of stool in the right and transverse colon. No abnormal wall thickening or eviden ce of obstruction. Normal appendix. Fatty liver.. RADIATION DOSE DELIVERED: 1,227.58mGy.cm Total DLP DATA REPOSITORY: All CT scans at this facility are submitted to the National Radiology Data Registry (NRDR) Dose Index Registry (DIR) with the [employer] (ACR). RADIATION OPTIMIZATION: All CT scans at this facility use at least one of these dose optimization te chniques: automated exposure control; mA and/or kV adjustment per patient size (includes targeted exa ms where dose is matched to clinical indication); or iterative reconstruction.
[2021-04-10] MEDS: Omnipaque 350 MG/ML 100 ML BTL IJ (13:38)
== END 2021-04-10 02:36 ==
PROVIDERS: PCP Family Medicine; Visit Provider Family Medicine
DX: R10.12 Left upper quadrant pain (principal); K76.0 Fatty (change of) liver, not elsewhere classified; K44.9 Diaphragmatic hernia without obstruction or gangrene; K59.00 Constipation, unspecified; Z01.812 Encounter for preprocedural laboratory examination
CPT/HCPCS: 71250; 74177; 82565; 82607; J3490

== ENCOUNTER 2021-06-26 16:39 | Outpatient (REF) | payer MEDICAID, SELFPAY | END 2021-06-26 16:40 | disposition home or self-care (01) | LOC: NCHCN 16:39 | PROVIDERS: PCP Family Medicine; Visit Provider Family Medicine | DX: R10.9 Unspecified abdominal pain (principal); M54.59 Other low back pain; N39.0 Urinary tract infection, site not specified | CPT/HCPCS: 87086 ==

== ENCOUNTER 2021-09-16 18:41 | Outpatient (REF) | payer MEDICARE, MEDICAID, SELFPAY | END 2021-09-16 18:42 | disposition home or self-care (01) | LOC: NCHCN 18:41 | PROVIDERS: PCP Family Medicine; Visit Provider Family Medicine | DX: R30.0 Dysuria (principal) | CPT/HCPCS: 87086 ==

== ENCOUNTER → 2021-10-14 01:34 | Outpatient (CLI) | payer MEDICARE, MEDICAID, SELFPAY ==
--- NOTE | 2021-10-14 | DI.RAD_ITS ---
Exam(s) XR FOREARM RT EXAM: XR FOREARM RT CLINICAL HISTORY: LUMP, R22.9. TECHNIQUE: 2D digital imaging was performed of the left forearm. Two views were obtained. AP and l ateral views were obtained. COMPARISON: No exams were available for comparison FINDINGS: BONES: No acute fracture is present. No bony destructive lesion is seen. Visualized portion of elbow and wrist joints are unremarkable. SOFT TISSUE: No radiopaque foreign bodies are seen in the soft tissues. IMPRESSION: 1. Node acute abnormality. 2. If there is concern for soft tissue mass, an ultrasound or MRI should be considered for further ev aluation. DATA REPOSITORY: RADIATION DOSE DELIVERED:
== END ==
PROVIDERS: PCP Family Medicine; Visit Provider Family Medicine
DX: M79.631 Pain in right forearm (principal); R22.31 Localized swelling, mass and lump, right upper limb
CPT/HCPCS: 73090

== ENCOUNTER 2021-11-11 16:21 | Outpatient (REF) | payer MEDICARE, MEDICAID, SELFPAY ==
[2021-11-11 16:23] LABS: Calculated LDL 121 mg/dL (<100); Cholesterol 214 mg/dL (<200); HDL Cholesterol 32 mg/dL (40-60); Triglyceride 305 mg/dL (<150)
[2021-11-11 17:36] LABS: Hemoglobin A1C 5.8 % (<5.7)
[2021-11-12 10:57] LABS: Lyme Ab w Rflx to Lyme Confirm Negative (Negative)
[2021-11-17 21:29] LABS: Anaplasma phagocytophilum Negative (Negative); B. miyamotoi PCR Negative (Negative); Babesia divergens/MO-1 Negative (Negative); Babesia duncani Negative (Negative); Babesia microti Negative (Negative); Ehrlichia chaffeensis Negative (Negative); Ehrlichia ewingii/canis Negative (Negative); Ehrlichia muris eauclairensis Negative (Negative)
== END 2021-11-11 16:22 | disposition home or self-care (01) ==
LOC: NCHCN 16:21
PROVIDERS: PCP Family Medicine; Visit Provider Family Medicine
DX: W57.XXXA Bitten or stung by nonvenomous insect and other nonvenomous arthropods, initial encounter (principal); Z00.00 Encounter for general adult medical examination without abnormal findings; T14.8XXA Other injury of unspecified body region, initial encounter
CPT/HCPCS: 80061; 87798; 83036; 86618

== ENCOUNTER → 2021-11-14 00:34 | Outpatient (CLI) | payer MEDICARE, MEDICAID, SELFPAY ==
--- NOTE | 2021-11-14 | DI.CTLCSR_ITS ---
Exam(s) CT CHEST LUNG CANCER SCREEN EXAM: CT CHEST LUNG CANCER SCREEN CLINICAL HISTORY: SMOKER F17.210, NODULE R91.8, SCREENING FOR LUNG CANCER TECHNIQUE: Imaging Protocol: Axial computed tomography images with coronal and sagittal reformatted images were created and reviewed COMPARISON: CT CT CHEST WO from 04/10/2021 FINDINGS: Tracheobronchial tree: Patent where visualized. Pulmonary parenchyma: No consolidation or dominant measurable mass. Mild centrilobular emphysematous changes are present. Lung Nodules: There is again seen a nodule in the medial aspect of the right upper lobe measuring 0.8 x 0.6 x 0.6 cm. This compares to 0.7 x 0.6 x 0.5 cm. No new pulmonary nodules are present. Mediastinum and Shira: No dominant adenopathy or fluid collection. The esophagus is unremarkable.Small hiatal hernia is present. Thyroid gland: Unremarkable. Lymph nodes: Unremarkable. Pleura: No effusion or pneumothorax. Heart: The heart is not dilated. Mild coronary artery calcification. No pericardial effusion. Aorta: Thoracic aorta non-dilated.Mild atherosclerosis. Upper abdomen: Status post cholecystectomy. Soft Tissues: Unremarkable. Bones: Within normal limits. IMPRESSION: Stable right upper lobe pulmonary nodule. Lung RADS Cat 2 - Benign Appearance / Behavior: Nodules with a very low likelihood of becoming a clin ically active cancer due to size or lack of growth Lung-RADS 1.0 CATEGORIES: Category 0 - Prior chest CT exam(s) being located for comparison. Category 1 - Annual screening in 12 months. No nodules or definitely benign nodules. Category 2 - Annual screening in 12 months. Benign appearance. Nodules with low likelihood of becomin g active cancer. Category 3 - 6-month follow-up. Probably benign. Short-term follow-up suggested. Nodules with low lik elihood of becoming active cancer. Category 4A - 3-month follow-up and CT/PET if >8 mm in size. Suspicious finding. Findings which requi re additional testing. Category 4B - Findings which require additional testing and tissue sampling. Suspicious finding. Category 4X - Category 3 or 4 nodules with additional features or imaging findings that increases the suspicion of malignancy. Modifier S- Potentially clinically significant finding. (Non lung cancer) RADIATION DOSE DELIVERED: 72.63mGy.cm Total DLP 1.84mGy CTDIvol 72.63mGy.cm Total DLP 1.84mGy CTDIvol DATA REPOSITORY: All CT scans at this facility are submitted to the National Radiology Data Registry (NRDR) Dose Index Registry (DIR) with the [employer] (ACR). RADIATION OPTIMIZATION: All CT scans at this facility use at least one of these dose optimization te chniques: automated exposure control; mA and/or kV adjustment per patient size (includes targeted exa ms where dose is matched to clinical indication); or iterative reconstruction.
== END ==
PROVIDERS: PCP Family Medicine; Visit Provider Family Medicine
DX: Z12.2 Encounter for screening for malignant neoplasm of respiratory organs (principal); R91.1 Solitary pulmonary nodule; F17.210 Nicotine dependence, cigarettes, uncomplicated
CPT/HCPCS: 71271

== ENCOUNTER 2021-12-12 16:10 | Outpatient (CLI) | payer MEDICARE, MEDICAID, SELFPAY ==
[2021-12-12 12:38] LABS: HCT 40.8 % (36.0-46.0); HGB 13.7 g/dL (11.2-15.7); MCH 30.6 pg (27.0-33.0); MCHC 33.6 % (32.0-36.0); MCV 91 fL (80-95); Platelet Count 171 10^3/uL (130-400); RBC 4.48 10^6/uL (3.93-5.22); RDW 13.3 % (11.7-14.6); RDW-SD 43.6 fL; WBC 6.53 10^3/uL (4.4-10.8)
[2021-12-12 12:44] LABS: ESR 16 mm/hr (0-30)
[2021-12-12 13:00] LABS: C-Reactive Protein 2.03 mg/dL (0.0-0.3); TSH (W/Ref FT4) 2.09 uIU/mL (0.36-3.74)
[2021-12-12 13:08] LABS: D-Dimer 796 ng/mlFEU (<500)
== END 2021-12-12 16:11 | disposition home or self-care (01) ==
LOC: LBO 16:12
PROVIDERS: PCP Family Medicine; Visit Provider Family Medicine
DX: M70.88 Other soft tissue disorders related to use, overuse and pressure other site (principal); M79.661 Pain in right lower leg; E05.90 Thyrotoxicosis, unspecified without thyrotoxic crisis or storm; K58.9 Irritable bowel syndrome, unspecified
CPT/HCPCS: 36415; 85027; 85652; 84443; 85379; 86140

== ENCOUNTER 2021-12-12 17:11 | Emergency (ER) | payer MEDICARE, MEDICAID, SELFPAY ==
[2021-12-12 17:15] VITALS: BP 157/77; PULSE 95; RESP 14; TEMP 36.7; O2SAT 95
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
[2021-12-12] MEDS: Enoxaparin 80 MG/0.8 ML SYR SC (20:41)
== END 2021-12-12 20:41 | disposition home or self-care (01) ==
PROVIDERS: Emergency Provider Physician Assistant; PCP Family Medicine
DX: M79.661 Pain in right lower leg (principal); M79.89 Other specified soft tissue disorders
CPT/HCPCS: 80053; 99283; 85025; 86140; J1650

== ENCOUNTER → 2021-12-13 13:00 | Outpatient (CLI) | payer MEDICARE, MEDICAID, SELFPAY ==
--- NOTE | 2021-12-13 | DI.US_ITS ---
Exam(s) US LOWER EXTREMITY VENOUS RT EXAM: US LOWER EXTREMITY VENOUS RT CLINICAL HISTORY: RT leg pain and swelling TECHNIQUE: Grayscale, color, and doppler imaging of the deep venous system of the right lower extrem ity was performed. COMPARISON: US ABDOMEN ULTRASOUND (P) from 12/11/2016 FINDINGS: There is no evidence of intraluminal thrombus and there is normal compression and augmentation demons trated within the common femoral vein, femoral vein, and popliteal vein. In the ipsilateral calf the interrogated veins also exhibit normal compression/ augmentation properti es. The ipsilateral saphenofemoral junction is patent. IMPRESSION: 1. No evidence of DVT in the right lower extremity. DATA REPOSITORY:
--- NOTE | 2021-12-13 14:18 | DI.VRAD_ITS ---
PROCEDURE INFORMATION: Exam: US Duplex Right Lower Extremity Veins, Limited Exam date and time: 12/13/2021 1:27 PM Age: 66 years old Clinical indication: Pain; Leg, lower; Right TECHNIQUE: Imaging protocol: Real-time Duplex ultrasound of the Right Lower Extremity with 2-D christensen scale, color Doppler flow and spectral waveform analysis with image documentation. Limited exam was focused on the right lower extremity veins. COMPARISON: CT ABDOMEN PELVIS W 04/10/2021 1:24 PM FINDINGS: Right deep veins: Unremarkable. The common femoral, femoral, proximal profunda femoral and popliteal veins are patent without thrombus. Normal Doppler waveforms. Normal compressibility and/or augmentation response. Right superficial veins: Unremarkable. Saphenofemoral junction is patent without thrombus. Soft tissues: Unremarkable. IMPRESSION: No evidence of deep vein thrombosis. Dictated and Authenticated by: Hari Lord MD. Ordering:TUTU Haro MD
== END ==
PROVIDERS: PCP Family Medicine; Visit Provider Physician Assistant
DX: M79.661 Pain in right lower leg (principal); R22.41 Localized swelling, mass and lump, right lower limb
CPT/HCPCS: 93971

== ENCOUNTER 2021-12-13 14:23 | Emergency (ER) | payer MEDICARE, MEDICAID, SELFPAY ==
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
[2021-12-13 14:25] VITALS: BP 134/84; PULSE 90; RESP 18; TEMP 37.7; O2SAT 91
[2021-12-13 14:44] VITALS: BP 134/84; PULSE 90; RESP 18; TEMP 37.2; O2SAT 95
== END 2021-12-13 14:49 | disposition home or self-care (01) ==
PROVIDERS: Emergency Provider Physician Assistant; PCP Family Medicine
DX: R22.41 Localized swelling, mass and lump, right lower limb (principal); J45.909 Unspecified asthma, uncomplicated; I10 Essential (primary) hypertension; Z87.891 Personal history of nicotine dependence; Z79.51 Long term (current) use of inhaled steroids
CPT/HCPCS: 99281

== ENCOUNTER → 2022-03-26 00:50 | Outpatient (CLI) | payer MEDICARE, MEDICAID, SELFPAY ==
--- NOTE | 2022-03-26 | DI.MAMMO_ITS ---
Exam(s) MAMMO SCREENING EXAM: MAMMO SCREENING CLINICAL HISTORY: SCREENING, Z12.31 TECHNIQUE: Bilateral full field digital CC and MLO mammographic images were obtained with 3D tomosyn thesis and utilizing computer aided detection (CAD). COMPARISON: Available for comparison. FINDINGS: Masses/Architectural Distortion: None seen. Microcalcifications: No suspicious pleomorphic-type are seen. Skin Thickening/Nipple Retraction: None. IMPRESSION: 1. No significant interval change with no specific features of malignancy noted. 2. Unless there is more urgent need, screening mammography is recommended, as per [employer] guidelines. BI-RADS Category 1 - Negative Breast Density - Category B - Scattered areas of fibroglandular density Breast density category C or D implies that the patient has dense breast tissue. Dense breast tissue is very common and is not abnormal but dense breast tissue can make it harder to find cancer on a ma mmogram. Also, dense breast tissue may increase their breast cancer risk. This information about the result of the mammogram report was provided to the patient to raise their awareness. Use this report when you speak with the patient about their risks for breast cancer, which includes their family hist ory. At that time, you may recommend for more screening tests (Ultrasound or MRI) as they might be us eful based on their risk. A negative radiographic report should not delay biopsy if a dominant or clinically suspicious mass is present. Up to ten percent of cancers are not identified on mammography. A negative report may reinforce clinical impression. Adenosis and dense breasts may obscure an underlying neoplasm. False positive reports average 6 to 10%. Patient will receive a letter notifying them of these results.
--- NOTE | 2022-03-26 13:58 | DI.US_ITS ---
APPROVED REPORT EXAM: Comprehensive 2D, Doppler, and color-flow Echocardiogram Patient Location: Out-Patient Inspector Insulation: Geovanna Baez RDCS (AE) Indications: swelling Other Information Study Quality: Adequate Conclusion Normal left ventricular size and wall thickness. Estimated ejection fraction is 55 to 60%. Wall mot ion is normal Normal right ventricular size and systolic function Both atria are normal in size There is no structural or hemodynamically significant valvular disease. Admitted right ventricular systolic pressure is 28 mmHg Wall motion Left Ventricle The left ventricle is normal size. The left ventricular systolic function is normal. The left ventric ular ejection fraction is within the normal range. There is normal left ventricular wall thickness. T here is normal LV segmental wall motion. There is no ventricular septal defect visualized. LVEF is 58 %. Right Ventricle The right ventricle is normal size. The right ventricular systolic function is normal. The RVSP is 27 .8 mmHg. Atria The left atrium size is normal. The right atrium size is normal. The interatrial septum is intact wit h no evidence for an atrial septal defect. Aortic Valve The aortic valve is normal in structure. There is no aortic valvular stenosis. No aortic regurgitatio n is present. Mitral Valve The mitral valve is normal in structure. No evidence of mitral valve stenosis. Trace mitral regurgita tion. Tricuspid Valve The tricuspid valve is normal in structure. There is no tricuspid valve stenosis. Trace to mild tric uspid regurgitation. Pulmonic Valve Pulmonic valve is not well visualized. There is no pulmonic valvular stenosis. There is no pulmonic v alvular regurgitation. Great Vessels The aortic root is normal in size. The ascending aorta is normal in size. Aortic arch is not well vis ualized. IVC is normal in size and collapses >50% with inspiration. Pericardium There is no pericardial effusion. 2D Dimensions IVSD d PLAX 0.82 cm F: 0.6-1.0 LV Vol A2C d MOD 102.5 mL LVPW d PLAX 0.80 cm F: 0.6 - 1.0 LV Vol A4C d MOD 90.5 mL LVID d PLAX 4.80 cm F: 3.8 - 5.2 LA vol/ BSA A2C s A-L 28.4 mL/m2 LVDs 3.30 cm F: 2.2 - 3.5 LA vol/ BSA A4C s A-L 20.7 mL/m2 Ao Root d 2.83 cm F: 2.7 - 3.3 LA Vol/ BSA Biplane s A-L 24.8 mL/m2 RA Area A4C 11.97 cm2 LA Area A4C s MOD 15.83 cm2 RA Vol/ BSA A4C s A-L 13.5 mL/m2 LA Area A2C s MOD 18.98 cm2 Ao Asc Diam d 3.19 cm F: 2.3 - 3.1 LV EF A4C MOD 57.8 % LV EF Teichholz 57.8 % LV EF A2C MOD 59.0 % LVEF (Dhillon's) 58.15 % F: 54 - 74 LV EF Biplane MOD 58.1 % LV Volume 74.15 mL F: 46 - 106 SV 56.50 mL LV Volume Index 39.02 mL/m2 F: 29 - 61 SV Index 29.72 mL/m2 LV Vol Biplane MOD 97.2 mL FS 30.45 % M-Mode TAPSE 2.36 cm (M/F) >1.7 LV Diastology MV E' medial 0.090 (>0.07 m/s) E/A Ratio 0.8 LV E/e MED 7.75 (<14) MV E Vmax 0.70 (0.4-1.3 m/s) MV E' lateral 0.127 (>0.1 m/s) MV A Vmax 0.90 (0.4-1.3 m/s) LV E/e LAT 5.45 (<14) MV E/A Ratio 0.75 MV E/E' medial 7.78 MV E/E' lateral 5.49 Aortic Valve LVOT Area 3.61 cm2 AoV Area Vmax 3.51 cm2 LVOT Vmax 1.64 m/s AoV Area/ BSA (Vmax) 1.85 cm2/m2 LVOT Mean David. 1.03 m/s EMILY Mean David. 3.43 cm2 LVOT Peak Grad 10.8 mmHg EMILY Mean David. Index 1.80 cm2/m2 LVOT Mean Grad 5.1 mmHg LVOT VTI 0.277 m LVOT Diam s 2.10 cm AoV Vmax 1.69 m/s Velocity Ratio 0.97 AoV Mean David. 1.09 m/s AoV Peak Grad 11.4 mmHg LVOT SV 100.01 mL AoV Mean Grad 5.6 mmHg AoV VTI 0.229 m AoV Area VTI 4.36 cm2 AoV Area/ BSA (VTI) 2.30 cm/m2 Mitral Valve MV DT 448 (160-240 msec) MV PHT 130 msec MV Area PHT 1.70 cm2 MV VTI 0.199 m MV Area VTI 5.03 (4.0-6.0 cm2) Pulmonary Valve PV Vmax 1.21 (0.5-1.5 m/s) RVOT Peak Gr. 3.21 mmHg PV Peak Grad 5.8 mmHg RVOT Mean Gr. 1.40 mmHg PV Mean Grad 3.1 mmHg RVOT VTI 0.160 m PV VTI 0.190 m RVOT Vmax 0.90 m/s Tricuspid Valve TR Peak Grad 24.6 mmHg TR Vmax 2.48 m/s RA Pressure 3.00 mmHg RVSP (TR) 27.6 mmHg
== END ==
PROVIDERS: PCP Family Medicine; Visit Provider Family Medicine
DX: R22.9 Localized swelling, mass and lump, unspecified (principal); Z12.31 Encounter for screening mammogram for malignant neoplasm of breast
CPT/HCPCS: 77063; 77067; 93306

== ENCOUNTER 2022-04-09 16:47 | Outpatient (REF) | payer MEDICARE, MEDICAID, SELFPAY ==
--- OUTSIDE RECORDS SUMMARY | 2022-04-09 16:50 | XMS_ITS ---
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 9 3806507 rectum Problem Gastro-esophageal K21.9 Active 26 5624665 reflux disease without esophagitis Problem Dysphagia, R13.14 Active 096675448 71670 pharyngoesophageal phase Problem Altered bowel habits R19.4 Active 85688268 Problem Family history of Z80.0 Active 31 9902082 colon cancer Problem Colon polyp K63.5 Active 74595088 Problem Deviated nasal septum J34.2 Active 086680195 Problem Hematochezia K92.1 Active 9241244 08 Problem Unspecified disorder J34.9 Active 718260207 of nose and nasal sinuses Problem Dyspepsia R10.13 Active 086541988 Problem Dysphagia, R13.10 Active 71562907 unspecified type Problem Duodenitis K29.80 Active 21577755 Problem Achalasia K22.0 Active 91379428 Problem History of Z87.19 Active 475873254 767156 esophagitis Problem Slow transit K59.01 Active 5074108 7 constipation Problem Other chronic pain G89.29 Active 8 8302407 Problem Hiatal hernia K44.9 Active 356260 09 Problem Functional dyspepsia K30 Active 0195415 Problem Other gastritis K29.60 Active 4556 007 without bleeding Problem Gastritis and K29.90 Active 332669 005 duodenitis Problem Constipation, K59.00 Active 559800 08 unspecified constipation type Problem Encounter for Z11.59 Active 747689 004 screening for other viral diseases Problem Pharyngoesophageal R13.14 Active dysphagia ALLERGIES Substance Reaction Event Type Date Status Amitriptyline HCl Unknown Drug Allergy Jul, Active codeine rash Drug Allergy Jul, Active Neurontin stomach sickness Non Drug Allergy Jul, Active Morphine ER N/V/D Drug Allergy Jul, Active Lyrica stomach sickness' Non Drug Allergy Jul, Acti ve ENCOUNTERS Encounter Location Date Diagnosis [address] Jun, Pain in left k nee M25.[address] [facility] [address] [place], [place] [id number] [address] May, [facility] [address] [place] [id number] May, Pain in left toya nee M25.562 [facility] [address] and Ot her chronic pain [place], [place] G89.[id number] Nov, Family hist ory of colon [facility] [address] [place] cancer Z80.0 and Polyp of 026313137 colon, unspecifi ed part of colon, unspecifi ed type K63.[address] [place] [address] Oct, Road [address] [place] [address] [id number] [address] [place] [address] Oct, Road [address] [place] [id number] Oct, Pharyngoeso phage[address] [facility] [address] [place] dysphagia R13 .14 ; [id number] Dyspepsia R10.13 and Family history of colon cancer Z80.[address] [place] [address] Sep, Hiatal hernia K44.9 ; Road Suite Functional dyspe psia K30 ; [place], [place] Personal history of colonic 685098791 polyps Z86.010 ; Family history of colon cancer Z80.0 ; Constipa tion, unspecified cons tipation type K59.00 and Hematochezia K92 .[address] [place] [address] May, Road [address] [place], [place] [id number] [address] Apr, [facility] [address] [place], [place] [id number] Gastroenterology [address] [place] [address] Apr, [address] [place] [address] [id number] [address] [place] [address] Mar, Road [address] [place] [address] [id number] [address] [place] [address] Mar, Encounter for screening for Road [address] other viral dise ases Z11.59 [place], [place] [id number] Gastroenterology [address] [place] [address] Mar, Hiatal hernia K44.9 ; Road Suite Functional dyspe psia K30 ; [place] Personal history of colonic 689967335 polyps Z86.010 ; Family history of colon cancer Z80.0 ; Constipa tion, unspecified cons tipation type K59.00 and Hematochezia K92 .[address] [place] [address] Feb, Encounter for screening for Road [address] other viral dise ases Z11.59 [place], [place] [id number] Gastroenterology [address] [place] [address] Jan, Encounter for screening for Road [address] other viral dise ases Z11.59 [place] ; Hiatal hernia K44.9 ; [id number] Functional dyspe psia K30 ; Personal history of colonic polyps Z86.010 ; Family history of colon cancer Z80.0 ; Constipa tion, unspecified cons tipation type K59.00 and Hematochezia K92 .[address] [place] [address] Sep, Road [address] [place] [address] [id number] [facility] [address] May, Road [address] [place] [address] [id number] [facility] [address] Apr, [address] [place] [id number] Apr, [address] [place] [id number] 31 Mar, [address] [place] [address] [id number] [facility] [address] Mar, Road [address] [place] [address] [id number] [facility] [address] August, Road [address] [place] [id number] Jun, Functional dy spepsia K30 Road [address] [place] [id number] Apr, Road [address] [place] [id number] Dec, Road [address] [place] [id number] Nov, Hiatal dejuan ia K44.9 ; [facility] [address] [place] Dyspepsia R10 .13 ; [id number] Dysphagia, unspe cified type R13.10 ; Duodeni tis K29.80 and Esophagitis K20.[address] [place] [address] Nov, Road [address] [place] [id number] Nov, Dyspepsia R10 .13 ; Road Suite Dysphagia, unspe cified type [place] R13.10 ; History of [id number] esophagitis Z87. 19 and Hiatal hernia K4 4.[address] Oct, Road [address] [place] [id number] Oct, Road [address] [place] [address] [id number] [facility] [address] Jun, Road [address] [id number] [facility] [address] Jun, Road [address] [id number] [address] May, Personal hi story of colonic [facility] [address] [place] polyps Z86.01 0 ; Family [id number] history of colon cancer Z80.0 and Colon polyp K63.5 [facility] [address] Apr, Road [address] [place] [address] [id number] [facility] [address] Jan, Road [address] [id number] [address] Jan, Colon polyp K63.5 ; Family [facility] [place] history of co tevin cancer [id number] Z80.0 ; Altered bowel habits R19.4 and Hematochezia K92 .1 [facility] [address] Jan, Hem atochezia K92.1 ; Road [address] Altered bowel burk bits R19.4 [place] and Family histo ry of colon 953618093 cancer Z80.[address] May, Deviated na nikki septum [address] [facility], [address] [place], [place] [id number] [address] Apr, Deviated nasal septum [address] [place], [place] [id number] [address] Apr, Deviated na nikki septum [address] [facility], [address] PO and Nasal obstruction [address] [id number] [address] Apr, [facility], [address] [place] [id number] [address] Feb, [facility], [address] [place], [place] [id number] [address] Jan, [facility], [address] [place], [place] [id number] [facility] Audiology [address] [place] [address] Nov, Road [address] [place] [id number] [address] Oct, Deviated nasal septum [address] [place], [place] [id number] [facility] [address] Sep, Road [address] [place], [place] [id number] [address] Jun, [facility] [address] [place] [id number] [address] Jun, Otolaryngology Road [address] [place], [place] [id number] UNKNOWN Jun, [address] Jun, Deviated nasal septum [address] [place], [place] [id number] [address] May, [facility], [address] [place] [id number] [address] Mar, Deviated na nikki septum [facility] [address], [address] [facility] [address] [place] [id number] [facility] [address] Nov, Dys pepsia and other Road [address] specified disord ers of [place], [place] function of stom ach 536.8 [id number] [facility] [address] Nov, Road [address] [place] [address] [id number] [facility] [address] Oct, Road [address] [place] [address] [id number] [facility] [address] Sep, Road [address] [place] [address] [id number] [facility] [address] Sep, Road [address] [place] [address] [id number] [facility] [address] Sep, Dys pepsia and other Road [address] specified disord ers of [place] function of stom ach 536.8 ; [id number] Gastritis, other , specified, witho ut mention of hemorrhage 53 5.40 ; BENIGN NEOPL REC HAJA/ANUS 211.4 and Consti pation by delayed colonic transit 564.[address] August, BENIGN NEOP L RECTUM/ANUS [facility] [place] [place] 211.4 and PRS NL HST COLONIC [id number] POLYPS V12.72 [facility] [address] August, Road [address] [place] [address] [id number] [facility] [address] August, Road [address] [place] [id number] Jul, GERD (gastr oesophageal [facility] [place] [place] reflux diseas e) 530.81 ; [id number] DYSPHAGIA,PHARYN GOESOPH 787.24 and PRSNL HST COLONIC POLYPS V 12.72 [facility] [address] Jul, Road [address] [place] [address] [id number] [facility] [address] Jun, Road [address] [place] [address] [id number] [facility] [address] Jun, LEONARD D (gastroesophageal Road [address] reflux disease) 530.81 ; [place] DYSPHAGIA,PHARYN GOESOPH [id number] 787.24 and PRSNL HST COLONIC POLYPS V 12.72 [facility] Dec, Cystocel e, midline 618.01 ; [facility] 16 Chronic cystitis NOS 595.2 [place], [place] ; Incontinence 7 88.30 and [id number] Retention of uri ne, unspecified 788. 20 [facility] Dec, [facility] 16 [place], [place] [id number] [facility] [address] [facility] Dec, [facility] 16 [place], [place] [id number] IMMUNIZATIONS Vaccine Route Administration Date Status MARINA - Flu VACC 6 MONTHS > Unknown Jan 19, 2017 Admini marivel Zostavax Unknown August 11, 2016 Administered Tdap - Adult Unknown May 26, 2011 Administered Pneumovax [id number] Unknown September 11, 2011 Administe red MARINA - Flu VACC 6 MONTHS > Unknown May 21, 2016 Admini marivel SOCIAL HISTORY Qualifiers Date Never Smoker REASON FOR REFERRAL FUNCTIONAL STATUS PLAN OF CARE VITAL SIGNS Height 5 ft 4 in in 2021-06-10 Height 5 ft 4 in in 2020-10-10 Height 5 ft 4 in in 2020-02-09 Height 5 ft 4 in in 2016-12-04 Height 5 ft 4 in in 2015-02-11 Height 5 ft 4 in in 2014-05-31 Height 5 ft 4 in in 2014-05-15 Height 5 ft 4 in in 2013-10-30 Height N/A in 2013-06-20 Height N/A in 2013-03-30 Height N/A in 2012-12-14 Height N/A in 2012-10-07 Height 5 ft 4 in in 2012-06-17 Weight 196.6 lbs 2021-06-10 Weight 182.4 lbs 2020-10-10 Weight 191 lbs 2020-02-09 Weight 196 lbs 2016-12-04 Weight 193 lbs 2015-02-11 Weight 184 lbs 2014-05-31 Weight 184 lbs 2014-05-15 Weight 184 lbs 2013-10-30 Weight 184 lbs 2013-03-30 Weight 189 lbs 2012-12-14 Weight 191 lbs 2012-10-07 Weight 196 lbs 2012-06-17 Weight 187 lbs 2009-01-15 Temperature 97.9 degrees Fahrenheit 2020-10-10 Temperature 98.1 degrees Fahrenheit 2020-02-09 Heart Rate 100 /min 2021-06-10 Heart Rate 96 /min 2020-10-10 Heart Rate nail uzbek /min 2020-02-09 Heart Rate 60 /min 2016-12-04 Heart Rate 99 /min 2015-02-11 Heart Rate 88 /min 2014-05-31 Heart Rate 88 /min 2014-05-15 Heart Rate 89 /min 2013-10-30 Heart Rate 80 /min 2013-06-20 Heart Rate 89 /min 2013-03-30 Heart Rate 85 /min 2012-12-14 Heart Rate 93 /min 2012-10-07 Heart Rate 78 /min 2012-06-17 Heart Rate 76 /min 2009-01-15 Oximetry 93 2021-06-10 Oximetry 93 2020-10-10 Respiratory Rate 16 /min 2016-12-04 Respiratory Rate 16 /min 2015-02-11 Respiratory Rate 20 /min 2014-05-15 Respiratory Rate 20 /min 2013-10-30 Respiratory Rate 20 /min 2013-06-20 Respiratory Rate 20 /min 2013-03-30 BMI 33.74 kg/m2 2021-06-10 BMI 31.31 kg/m2 2020-10-10 BMI 32.78 kg/m2 2020-02-09 BMI 33.64 kg/m2 2016-12-04 BMI 33.12 kg/m2 2015-02-11 BMI 31.58 kg/m2 2014-05-31 BMI 31.58 kg/m2 2014-05-15 BMI 31.58 kg/m2 2013-10-30 BMI 31.58 kg/m2 2013-03-30 BMI 32.44 kg/m2 2012-12-14 BMI 32.78 kg/m2 2012-10-07 BMI 33.64 kg/m2 2012-06-17 Blood pressure systolic 142 mm Hg 2021-06-10 Blood pressure diastolic 62 mm Hg 2021-06-10 MEDICATIONS Medication Instructions Dosage Frequency Start End Duration Statu s Date Date Lactulose 20 Orally Twice a 45 ml Acti ve GM/30ML day as needed Ondansetron HCl 4 Orally twice a 1 tablet 12h Active mg day Nicoderm CQ 7 Transdermal 1 patch to 24h Unk nown MG/24HR Once a day skin Mirapex 0.125 MG Orally Once a 1 tablet 24h Unknown day Meclizine HCl 25 Orally every 6 1 tablet as Unknown MG hrs as needed needed Valtrex 500 mg Orally three 2-3tablets U nknown times a day as needed Narcan 4 MG/0.1ML Nasally as Act ze directed for overdose Fluticasone Nasally Once a 1 spray in 24h Ac tive Propionate 50 day each MCG/ACT nostril Zolpidem Tartrate Orally Once a 1 tablet at 24h Active 10 MG day bedtime as needed Levothyroxine Orally Once a 1 tablet on 24h Unknown Sodium 25 MCG day an empty stomach in the morning Magnesium Citrate Orally as 1/2 bottle U nknown 1.745 GM/30ML needed for no bowel movement Promethazine HCl Orally Three 2 tablets 8h Active 25 MG times a day as needed Vitamin B Complex Orally once a 1 tablet 24h Active - day Mirtazapine 7.5 Orally Once a 2 tablets 24h Unknown MG day at bedtime rOPINIRole HCl Orally at 1-2 tabs Active 0.5 MG bedtime Cephalexin 250 MG Orally three 1 capsule Unknown times a day for 5 days Multivitamins - Orally Once a 24h Un known day Colace 100 mg Orally Three 1 capsule Act ze times a day as as needed needed oxyCODONE HCl 15 Orally 2 tabs 1 tablet as Active MG twice a day needed then 1 three times a day as needed Benadryl orally every 8 1 tablet Unknown hours as needed MiraLax - Active Ambien 10 MG Orally prn 1 tablet at Acti ve bedtime as needed Requip orally once a 1 tablet Unknown dy Loratadine 10 MG Orally Once a 1 tablet 24h Active day Voltaren 1 % Transdermal as directed Act ze Twice a day prn Methadone HCl 10 Orally as 5 tablets Act ze MG directed in the am, 4 at 9am, 5 at 1pm, 5 at bed time PROCEDURES Procedure Date Ordered Result Body Site NJX AA&/STRD GNCLR NRV BRNC July 14, 2021 COLONOSCOPY DIAGNOSTIC November 01, 2020 COLONOSCOPY W/CONTROL BLEED Nov 25, 2020 EGD WITH BIOPSYS July 28, 2012 BLADDER SCAN Jan 15, 2009 REPAIR OF NASAL SEPTUM May 10, 2014 EGD BIOPSY SINGLE/MULTIPLE November 01, 2020 COLONOSCOPY WITH BIOPSY Nov 25, 2020 COLONOSCOPY AND BIOPSY (3) 2012-06-17 Booked for 4-11 EGD 2016-12-04 N/A EGD WITH BIOPSYS Dec 15, 2016 RESULTS Name Result Date Reference Range SURGICAL PATH 2020-11-25 SURGICAL PATH 2020-11-01 COVID 19 SCREENING PCR ([id number]) 2020-04-19 SARS-CoV-2, CORRINA Not Detected Not Detected CBC, WITH AUTO DIFF 2016-12-11 WBC WBC SUSPECT FLAGS RBC RBC SUSPECT FLAG HEMOGLOBIN HEMATOCRIT MCV MCH MCHC PLATELETS RDW PLT SUSPECT FLAG MPV NEUTROPHIL % LYMPHS % MONOCYTES % EOSINOPHILS % BASOPHILS % NEUTROPHILS # LYMPHOCYTES # MONOCYTES # EOSINOPHILS # BASOPHILS # MANUAL DIFFERENTIAL? PATH? PSR COMMENT SMEAR? SMEAR COMMENT SMEAR COMMENT BILIRUBIN DIRECT 2016-12-11 DIRECT BILIRUBIN CELIAC DISEASE PANEL (celiac) ([id number]) 2016-11-18 5 Endomysial Antibody IgA t - Transglutaminase (tTG) IgA Immunoglobulin A, QN, Serum t - Transglutaminase (tTG) IgG X COMPREHENSIVE METABOLIC PROFILE 2016-12-11 SODIUM POTASSIUM CHLORIDE CO2 CALCIUM GLUCOSE BLOOD UREA NITROGEN CREATININE eGFR Calculated Value TOTAL BILIRUBIN TOTAL PROTEIN ALBUMIN ALKALINE PHOSPHATASE ALT AST ANION GAP BUN/CREATININE RATIO OSMOLARITY GLOBULIN ALBUMIN/GLOBULIN RATIO HEPATITIS C ANTIBODY 2016-12-11 Hepatitis C IgG Antibody Interpretation LIPASE 2016-12-11 LIPASE US ABDOMINAL LIMITED 2016-12-11 Colonoscopy Colonoscopy NM GASTRIC EMPTY 2012-12-06 FL ESOPHOGRAM 2012-07-15 REASON FOR VISIT [facility]- LEFT GENICULAR BLOCK F/U, [facility]- left genicular nerve block under fluoroscopic guidance, [facility]- left genicular nerve block under fluoroscopic guidance, no auth req'd // Procedure Schedule// BOOKED , [facility]- Left knee pain,discuss genicular block vs Iovera, GI fu colon 11/25/20, GI- COLO/EGD F/U, GI-COLO, GI-2wk. f/u from egd, colo, EGD results, GI- EGD COLO, GI-Achalasia, GI- EGD COLO 2 week f/u , GI- COLO EGD , colonoscopy prep, Call for Monalisa, reschedule, GI EGD COLO 2 week f/u, GI- EGD COLO, meds, schedule, GI- COLO EGD 2 week f/u, GI- COLO /EGD , covid lab/called pt to have her come insooner for test, GI colon consult, GI-COLO, GI-COLO, r/s colonoscopy, GI-colonoscopy, chart update, Pre load, schedule colonoscopy (05/08/19 LM), schedule colonoscopy , Colonoscopy, GI repeat colo, hx of colonoscopy with excision of polyp/consider upper endoscopy, preload, abdomen mri , GI abd pain, update clinical info, biopsy results, dysphagia, ? r/s egd, GI -ABD PAIN, hurts to eat, only eating pudding, GI Abd pain CXLD sick will call back to r/s, Missed appt #1, GI abd pain, update clinical info,pathology, GI - f/u 06/11 colo, f/u appt, repeat due to poor prep, GI - f/u for 02/14 colo not neededpt having repeat colonoscopy, f/u appt, GI fu colonoscopy 02/14/15, GI fu colonoscopy 02/14/15, swelling near ear/jaw, hematochezia, GI IBS, hemorrhoid acting up, due for colonoscopy, GI IBS-pt is not feeling well r/s'd appt to 02/11 on cancellation list-mk, GI IBS, status post septoplasty, status post septoplasty, Septoplasty, SURGERY , kyler, JOSE chávez-canceled pre op, chronic nasal congestion-medically recalcitrant, Change of Rx, ENT FU SEPTO, ENT-Septoplasty, Anesthesia , pre op phone call, ronic nasal obstruction-medically recalcitrant, ENT Septoplasty, ENT Septoplasty, chronic nasal obstruction, ENT [employer] deviated septum, GI 2 wk fu aftergastric emptying. Pt states that her GERD symptoms have been bad for the past few days. She notes that the Prevacid only works if she takes 2 tabs and has a hard time lying down to sleep. She c/o being constipated, having a BM twice a week., R/S due to not being able to get to her gastric emptying that day, med issue, Amitiza prior auth denial, medicaidinfo and need prior auth for script, GI fu colonoscopy 08/25/12; Pt c/o being constipated, having 1 bmper week. She states that she would like to start a stool softetener daily. She reports that she hasan appetite but after a few bites of food, she becomes full. , pt's cld cx'd appt pt not feeling well, 2wk fu 08/25 [place]. , [place], 2 day prep, [place] 2 day prep ?, repeat colo, GI [place]/EGD, Confirm time, arrival time, GI With EGD, GI chronic gerd/dysphagia, GI chronic gerd/dysphagia, Office Cysto, Office Cysto PT Sick R/S, incontinence, incontinence PT R/S Appt, preload emr clinical data, Preload emr clinical data, incontinence Insurance Providers [facility] Member Patient Patient Patient Patient Patient Subscriber Subscriber Subscriber Group Insurance Plan Plan Plan Plan ID Relationship Address Phone Name Date of ID Name Date of No Type Insurance Insurance Insurance Coverage to Subscriber Address Phone Name Dates [place] [phone] [place] self [place] [id number] [place]ICAID [place] [address] [place] a [id number] [place] [phone] [place] self [place] [id number] [place] [address] [place] [address] [place] [address] a [place] [phone] [place] [id number] [place] 06 [place] [id number] [facility] - [address] [facility] [place] - self Oney[place] [id number] DO NOT [facility] DO NOT Stephanie URBANO cain ([place] (Write Off) [place] [phone] Off)
[2022-04-09 20:27] LABS: ESR 69 mm/hr (0-30); HCT 41.7 % (36.0-46.0); HGB 13.5 g/dL (11.2-15.7); MCHC 32.4 % (32.0-36.0); MCV 90 fL (80-95); MPV 9.8 fL (8.0-11.0); Platelet Count 290 10^3/uL (130-400); RBC 4.65 10^6/uL (3.93-5.22); RDW 13.1 % (11.7-14.6); RDW-SD 43.1 fL; WBC 6.04 10^3/uL (4.4-10.8)
[2022-04-09 20:38] LABS: ALT 25 U/L (14-59); AST 30 U/L (15-37); Albumin 3.4 g/dL (3.4-5.0); Alkaline Phosphatase 101 U/L (46-116); Anion Gap 5.7 mmol/L (3-11); BUN 12 mg/dL (7-18); Bilirubin, Total 0.3 mg/dL (0.2-1.0); C-Reactive Protein 3.54 mg/dL (0.0-0.3); CO2 29.3 mmol/L (21.0-32.0); CREATININE 1.1 mg/dL (0.55-1.02); Chloride 102 mmol/L (98-107); Estimated GFR 55.76 (mL/min/1.73m2); Glucose 110 mg/dL (74-106); Sodium 137 mmol/L (136-145); Total Protein 8.2 g/dL (6.4-8.2)
[2022-04-09 20:51] LABS: Calcium 9.3 mg/dL (8.5-10.1)
== END 2022-04-09 16:48 | disposition home or self-care (01) ==
LOC: NCHCN 16:47
PROVIDERS: PCP Family Medicine; Visit Provider Family Medicine
DX: R30.0 Dysuria (principal); R10.9 Unspecified abdominal pain
CPT/HCPCS: 80053; 85027; 85652; 86140; 87086

== ENCOUNTER 2022-05-05 12:50 | Outpatient (REF) | payer MEDICARE, MEDICAID, SELFPAY ==
[2022-05-05 16:41] LABS: ESR 27 mm/hr (0-30)
[2022-05-05 16:43] LABS: HCT 42.6 % (36.0-46.0); HGB 13.9 g/dL (11.2-15.7); MCH 29.2 pg (27.0-33.0); MCHC 32.6 % (32.0-36.0); MCV 90 fL (80-95); MPV 10.4 fL (8.0-11.0); Platelet Count 210 10^3/uL (130-400); RBC 4.76 10^6/uL (3.93-5.22); RDW 14.3 % (11.7-14.6); RDW-SD 46.9 fL; WBC 6.56 10^3/uL (4.4-10.8)
[2022-05-05 17:06] LABS: Anion Gap 5.3 mmol/L (3-11); BUN 8 mg/dL (7-18); C-Reactive Protein 2.07 mg/dL (0.0-0.3); CO2 31.7 mmol/L (21.0-32.0); CREATININE 1.1 mg/dL (0.55-1.02); Calcium 9.5 mg/dL (8.5-10.1); Chloride 101 mmol/L (98-107); Estimated GFR 55.76 (mL/min/1.73m2); Glucose 101 mg/dL (74-106); Potassium 3.9 mmol/L (3.5-5.1); Sodium 138 mmol/L (136-145); Uric Acid 4.8 mg/dL (2.6-6.0)
== END 2022-05-05 12:51 | disposition home or self-care (01) ==
LOC: NCHCN 12:50
PROVIDERS: PCP Family Medicine; Visit Provider Family Medicine
DX: M25.475 Effusion, left foot (principal); M21.6X2 Other acquired deformities of left foot; M79.89 Other specified soft tissue disorders; R79.82 Elevated C-reactive protein (CRP)
CPT/HCPCS: 80048; 85027; 85652; 84550; 86140; 86431

== ENCOUNTER 2022-05-06 01:28 | Outpatient (CLI) | payer MEDICARE, MEDICAID, SELFPAY ==
--- NOTE | 2022-05-06 | DI.RAD_ITS ---
Exam(s) XR FOOT RT COMPLETE EXAM: XR FOOT RT COMPLETE CLINICAL HISTORY: JOINT SWELLING, M25.40,FOOT DEFORMITY,M21.6X9. TECHNIQUE: 2D digital imaging was performed. COMPARISON: CR XR FOOT LT COMPLETE from 01/30/2019 FINDINGS: 3 views There is a long intramedullary fusion adilene across fused tibiotalar and subtalar joints. An additional oblique screw seen across the talonavicular articulation on its medial aspect. This articulation is not yet fused. There is been resection of the heads of the 4th and 5th metatarsals. A prominent soft tissue density is noted on the lateral aspect of the foot, lateral to the distal diaphysis of the 5th metatarsal. There no calcifications evident within this soft tissue density. No radiopaque foreign body. No rad iographic evidence of adjacent osteomyelitis. IMPRESSION: Fusion in the hindfoot as described above. Abnormal soft tissue mass in the lateral aspect of the foot, lateral to the distal half of the 5th me tatarsal. No adjacent osteomyelitis. DATA REPOSITORY: RADIATION DOSE DELIVERED:
== END 2022-05-06 01:48 ==
LOC: DI 01:28
PROVIDERS: PCP Family Medicine; Visit Provider Family Medicine
DX: M79.671 Pain in right foot (principal); M25.571 Pain in right ankle and joints of right foot; Z98.1 Arthrodesis status; M79.89 Other specified soft tissue disorders; M21.6X1 Other acquired deformities of right foot
CPT/HCPCS: 73630

== ENCOUNTER 2022-06-04 00:12 | Outpatient (CLI) | payer MEDICARE, MEDICAID, SELFPAY ==
--- NOTE | 2022-06-04 | DI.MRI_ITS ---
Exam(s) MR LOWER EXTREMITY RT WO/W EXAM: MR LOWER EXTREMITY RT WO/W CLINICAL HISTORY: SOFT TISSUE MASS M79.9 LATERAL DISTAL RT FOOT TECHNIQUE: Multiplanar multisequence MRI was performed. Both pre and post contrast infused sequence s were performed. Contrast injected was 16 mL Dotarem COMPARISON: CR XR FOOT RT COMPLETE from 05/06/2022 FINDINGS: MARROW:There is susceptibility artifact in the hind foot from the fusion hardware. There is a chronic non fused fracture of the proximal phalanx of great toe. There has been resection of the heads of the 4th and 5th metatarsals. No evidence of fracture of the metatarsals. Minimal degenerative changes at the tarsometatarsal joints. No joint effusions. No a bnormal signal in the phalanges. SOFT TISSUES: There is a well-defined oval mass in subcutaneous tissue immediately lateral to the dis kaitlyn diaphysis of the 5th metatarsal, this measuring 2.3 cm longitudinal x 1.3 cm widex 1.7 cm cranioc audal. Exhibits increased signal on STIR images. Does not exhibit internal enhancement following co ntrast injection. This lesion contacts a lateral cortex of the adjacent 5th metatarsal but without ev idence of bony invasion. There is no intraosseous signal to suggest osteomyelitis. IMPRESSION: 1. There is a well marginated 23 x 13 x 17 millimeter complex cystic appearing mass on the lateral as pect of the foot adjacent to the remaining distal diaphysis of the 5th metatarsal. This does not exhi bit internal enhancement following contrast injection. It does not invade the adjacent 5th metatarsal . Complex cystic mass most probable benign appearance such as complex sebaceous cyst or complicated p rolando articular ganglion cyst. Other possibly may be related to the prior surgery in this region. 2. No evidence of osteomyelitis in the adjacent metatarsals which have undergone prior head resection or head resorption of the 4th and 5th metatarsals DATA REPOSITORY:
[2022-06-04] MEDS: Gadoterate meglumine 20 ML VIAL IVP (14:55)
[2022-06-04] MEDS: Normal Saline Flush 10 ML SYR IVP (14:56)
--- NOTE | 2022-06-04 18:13 | DI.VRAD_ITS ---
PROCEDURE INFORMATION: Exam: MR Right Lower Extremity Without and With Contrast; Forefoot Exam date and time: 06/04/2022 2:01 PM Age: 66 years old Clinical indication: Other: Soft tissue mass m79.9 lateral distal RT foot; Prior surgery; Surgery date: 6+ months TECHNIQUE: Imaging protocol: MR of the Right foot without and with contrast. Exam focused on the forefoot. Total images: 502 Contrast material: DOTOREM; Contrast volume: 16 ml; Contrast route: INTRAVENOUS (IV); COMPARISON: CR XR FOOT RT COMPLETE 05/06/2022 12:22 PM FINDINGS: Bones and cartilage: There is susceptibility artifact from hardware within the hindfoot. There is chronic resorption of the 4th and 5th metatarsal head and necks. Chronic unfused fracture deformity involving the proximal phalanx of the great toe. No bone marrow edema. Soft tissues: There is a nodule within the soft tissues of the lateral mid foot. Laterally it is causing a focal contour bulge to the skin surface. It is fairly well-circumscribed and measures 2 cm in cephalocaudad dimension by 1.4 cm in width by 2.2 cm in AP dimension. It is complex in nature with a T1 hypointense/T2 hyperintense fluid component including a small amount of curvilinear T1 hyperintensity within the fluid consistent with small amount of hemorrhage. Inferiorly there is a T1/T2 intermediate intensity complex fluid versus soft tissue component. There is no enhancement, however, to confirm a soft tissue component. The lesion abuts the lateral cortex of the 5th metatarsal without evidence of bony invasion. IMPRESSION: Lateral midfoot soft tissue nodule which is complex cystic in nature. Differential includes a complex ganglion cyst or sebaceous cyst. Pathologic correlation recommended. Dictated and Authenticated by: Jonathon Nunez MD. Ordering:MAINOR Hammer MD
== END 2022-06-04 00:32 ==
LOC: DI 00:13
PROVIDERS: PCP Family Medicine; Visit Provider Family Medicine
DX: M79.9 Soft tissue disorder, unspecified (principal)
CPT/HCPCS: 73720

== ENCOUNTER 2022-06-28 11:21 | Emergency (ER) | payer MEDICARE, MEDICAID, SELFPAY ==
[2022-06-28] VITALS (8 sets, daily range): BP systolic 113–168; BP diastolic 56–101; PULSE 70–105; RESP 20; TEMP 37.2; O2SAT 96
--- NOTE | 2022-06-28 11:45 | DI.CT_ITS ---
Exam(s) CT ABDOMEN PELVIS W EXAM: CT ABDOMEN PELVIS W CLINICAL HISTORY: severe pelvic/pubic pain hx endometriosis hysterec. TECHNIQUE: Imaging Protocol: Axial computed tomography images with coronal and sagittal reformatted images were created and reviewed CONTRAST MATERIAL: Intravenous: Omnipaque 350 Contrast volume:100 ml Oral: no COMPARISON: CT CT ABDOMEN PELVIS W from 04/10/2021 FINDINGS: ABDOMEN: Lung Bases: Normal where visualized. Small hiatal hernia. Liver: Fatty infiltration. No measurable mass. Gallbladder and biliary tract: Status post cholecystectomy. No radiodense calculus. Stable mild nona iary dilation. Pancreas: Normal density, no abnormal calcifications or inflammatory process. Spleen: Normal. Kidneys: Cortical scarring. Simple cysts. No further follow-up recommended.. No radiodense stones or obstructive uropathy. No suspicious masses seen. Adrenal glands: No masses seen. Abdominal Aorta: Abdominal portion non-dilated. Atherosclerotic changes. Soft tissues: Unremarkable. PELVIS: Bladder: No gross wall thickening. No calculi.No focal mass. Bowel: Large quantity of fecal material. No obstruction. No bowel wall thickening. Appendix normal . Peritoneal cavity: No ascites, collection or mesenteric inflammatory response. Bones: Degenerative changes. Reproductive organs: Status post hysterectomy. Lymph nodes: Unremarkable. Impression: No acute abnormality in the abdomen and pelvis. A large quantity of fecal material is noted. No alicia dence of inflammation. RADIATION DOSE DELIVERED: 1,470.71mGy.cm Total DLP DATA REPOSITORY: All CT scans at this facility are submitted to the National Radiology Data Registry (NRDR) Dose Index Registry (DIR) with the [employer] (ACR). RADIATION OPTIMIZATION: All CT scans at this facility use at least one of these dose optimization te chniques: automated exposure control; mA and/or kV adjustment per patient size (includes targeted exa ms where dose is matched to clinical indication); or iterative reconstruction.
[2022-06-28 11:48] LABS: Bilirubin Negative (Negative); Blood Negative (Negative); Clarity Clear (Clear); Glucose Negative (Negative); Ketones Negative (Negative); Leukocyte Esterase Negative (Negative); Nitrite Negative (Negative); Specific Gravity <= 1.005 (1.005-1.025); Urobilinogen 0.2 mg/dL (Up to 0.2)
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
[2022-06-28] MEDS: Normal Saline 1,000 ML 1000 ML IV (12:06)
[2022-06-28 12:08] LABS: Abs Immature Grans 0.02 10^3/uL (0.0-0.06); Absolute Basophil Count 0.02 10^3/uL (0.0-0.2); Absolute Eosinophil Count 0.03 10^3/uL (0.0-0.7); Absolute Lymphocyte Count 1.99 10^3/uL (1.2-3.4); Absolute Monocyte Count 0.47 10^3/uL (0.1-0.8); Absolute Neutrophil Count 3.64 10^3/uL (1.2-6.7); Basophils % 0.3; Eosinophils % 0.5; HCT 42.2 % (36.0-46.0); HGB 14.1 g/dL (11.2-15.7); Immature Grans % 0.3; Lymphocytes % 32.3; MCH 29.5 pg (27.0-33.0); MCHC 33.4 % (32.0-36.0); MCV 88 fL (80-95); Monocytes % 7.6; Platelet Count 190 10^3/uL (130-400); RBC 4.78 10^6/uL (3.93-5.22); RDW 14.6 % (11.7-14.6); RDW-SD 48.1 fL; WBC 6.17 10^3/uL (4.4-10.8)
[2022-06-28] MEDS: ACETAMINOPHEN 1,000 MG/100 ML BTL 400 MG IVPB (12:09)
[2022-06-28] MEDS: LORazepam 2 MG/ML VIAL 0.5 MG IVP (12:09)
[2022-06-28] MEDS: Ketorolac 15 MG/ML VIAL IVP (12:09)
[2022-06-28] MEDS: Ondansetron 4 MG/2 ML VIAL IVP (12:09)
[2022-06-28 12:23] LABS: ALT 28 U/L (14-59); AST 16 U/L (15-37); Albumin 3.3 g/dL (3.4-5.0); Alkaline Phosphatase 104 U/L (46-116); Anion Gap 7.2 mmol/L (3-11); BUN 10 mg/dL (7-18); Bilirubin, Total 0.3 mg/dL (0.2-1.0); CO2 29.8 mmol/L (21.0-32.0); CREATININE 1.1 mg/dL (0.55-1.02); Calcium 8.5 mg/dL (8.5-10.1); Chloride 102 mmol/L (98-107); Estimated GFR 55.76 (mL/min/1.73m2); Glucose 168 mg/dL (74-106); Potassium 3.7 mmol/L (3.5-5.1); Sodium 139 mmol/L (136-145); Total Protein 7.5 g/dL (6.4-8.2)
[2022-06-28] MEDS: Normal Saline - Diluent 50 ML VIAL IJ (12:51)
[2022-06-28] MEDS: Omnipaque 350 MG/ML 100 ML BTL IJ (12:52)
[2022-06-28] MEDS: Normal Saline Flush 10 ML SYR IVP (12:54)
--- NOTE | 2022-06-28 14:00 | DI.VRAD_ITS ---
PROCEDURE INFORMATION: Exam: CT Abdomen And Pelvis With Contrast Exam date and time: 06/28/2022 11:49 AM Age: 66 years old Clinical indication: Other: Severe pelvic/pubic pain HX endometriosis hysterectomy TECHNIQUE: Imaging protocol: Computed tomography of the abdomen and pelvis with contrast. Radiation optimization: All CT scans at this facility use at least one of these dose optimization techniques: automated exposure control; mA and/or kV adjustment per patient size (includes targeted exams where dose is matched to clinical indication); or iterative reconstruction. Contrast material: OMNIPAQUE 350; Contrast volume: 100 ml; Contrast route: INTRAVENOUS (IV); COMPARISON: CT ABDOMEN PELVIS W 04/10/2021 1:24 PM FINDINGS: Lungs: The visualized lung bases demonstrate minor dependent atelectasis. Diaphragm: A small hiatal hernia is again present. Liver: The liver is again fatty in density. It appears otherwise unremarkable. Gallbladder and bile ducts: Cholecystectomy clips are again present. There is again dilatation of the bile ducts, often seen after cholecystectomy. Pancreas: Normal. No ductal dilation. Spleen: Normal. No splenomegaly. Adrenal glands: Normal. No mass. Kidneys and ureters: The kidneys again demonstrate mild areas of cortical scarring. There are again simple renal cysts bilaterally, measuring 14 mm on the right and 12 mm and 8 mm on the left. Stomach and bowel: The unopacified small bowel is not significantly distended to suggest obstruction. The large bowel is grossly unremarkable in appearance. Appendix: The appendix appears normal. Intraperitoneal space: No free air or significant free fluid. Vasculature: The abdominal aorta is nonaneurysmal. Atherosclerotic vascular calcifications are again present. Lymph nodes: Unremarkable. No enlarged lymph nodes. Urinary bladder: Unremarkable. Reproductive: There has again been hysterectomy. No gross adnexal abnormality is apparent, but ultrasound would be more appropriate in this regard. Bones/joints: Degenerative changes again involve the spine and hips. Soft tissues: Unremarkable. IMPRESSION: 1. No acute abnormality identified. With the given history, consider pelvic ultrasound. 2. Nonurgent findings similar to 04/07 07/07. Dictated and Authenticated by: Sukhwinder Clancy MD. Ordering:JOSH Olivas MD
== END 2022-06-28 14:19 | disposition home or self-care (01) ==
PROVIDERS: Emergency Provider Emergency Medicine; PCP Family Medicine
DX: R10.2 Pelvic and perineal pain (principal); R30.0 Dysuria
CPT/HCPCS: 36415; 80053; 96361; 96374; 96375; 99285; 74177; 81003; 85025; 99284; J0131; J1885; J2060; J2405; J3490

== ENCOUNTER 2022-07-02 15:55 | Outpatient (REF) | payer MEDICARE, MEDICAID, SELFPAY | END 2022-07-02 15:56 | disposition home or self-care (01) | LOC: NCHCN 15:55 | PROVIDERS: PCP Family Medicine; Visit Provider Family Medicine | DX: R30.0 Dysuria (principal) | CPT/HCPCS: 87086 ==

== ENCOUNTER 2022-08-04 15:18 | Outpatient (REF) | payer MEDICARE, MEDICAID, SELFPAY ==
[2022-08-04 16:05] LABS: HCT 44.9 % (36.0-46.0); HGB 14.6 g/dL (11.2-15.7); MCHC 32.5 % (32.0-36.0); MCV 89 fL (80-95); MPV 9.8 fL (8.0-11.0); Platelet Count 198 10^3/uL (130-400); RBC 5.03 10^6/uL (3.93-5.22); RDW 14.6 % (11.7-14.6); RDW-SD 47.3 fL; WBC 8.34 10^3/uL (4.4-10.8)
[2022-08-04 16:18] LABS: ALT 33 U/L (14-59); AST 25 U/L (15-37); Albumin 3.9 g/dL (3.4-5.0); Alkaline Phosphatase 110 U/L (46-116); Anion Gap 5.9 mmol/L (3-11); BUN 11 mg/dL (7-18); Bilirubin, Total 0.4 mg/dL (0.2-1.0); CO2 33.1 mmol/L (21.0-32.0); Calcium 9.2 mg/dL (8.5-10.1); Chloride 102 mmol/L (98-107); Estimated GFR 62.52 (mL/min/1.73m2); Glucose 86 mg/dL (74-106); Sodium 141 mmol/L (136-145); Total Protein 7.7 g/dL (6.4-8.2)
== END 2022-08-04 15:19 | disposition home or self-care (01) ==
LOC: NCHCN 15:18
PROVIDERS: PCP Family Medicine; Visit Provider Family Medicine
DX: R73.03 Prediabetes (principal); Z01.818 Encounter for other preprocedural examination
CPT/HCPCS: 80053; 85027; 83036

== ENCOUNTER → 2022-12-09 01:48 | Outpatient (CLI) | payer MEDICARE, MEDICAID, SELFPAY ==
--- NOTE | 2022-12-09 | DI.CTLCSR_ITS ---
Exam(s) CT CHEST LUNG CANCER SCREEN EXAM: CT CHEST LUNG CANCER SCREEN CLINICAL HISTORY: SMOKER, F17.210, SCREENING FOR LUNG CANCER TECHNIQUE: Imaging Protocol: Axial computed tomography images with coronal and sagittal reformatted images were created and reviewed COMPARISON: CT CT CHEST WO from 07/30/[address] CHEST WO from 04/10/[address] CHEST LUNG CANCER SCREEN from 11/14/2021 FINDINGS: Tracheobronchial tree: Patent where visualized. Pulmonary parenchyma: No consolidation or dominant measurable mass. Emphysematous changes are present in the lungs. Lung Nodules: There has been interval increase in size of the right upper lobe nodule which now measu res 1.7 x 1.2 cm. There is now a 2nd nodular opacity in the right upper lobe measuring 1.8 x 1.3 x 2 .2 cm. Mediastinum and Shira: There is mediastinal and right hilar adenopathy. There is a 1.4 x 2 cm pretrach eal lymph node. There is soft tissue in the right hilum which causes narrowing of the right upper lob e airway. It measures approximately 2.6 x 2.1 cm. The esophagus is unremarkable.There is a small hiat al hernia. Thyroid gland: Unremarkable. Lymph nodes: Unremarkable. Pleura: No effusion or pneumothorax. Heart: The heart is not dilated. No coronary artery calcifications are seen. No pericardial effusion . Aorta: Thoracic aorta non-dilated.Atherosclerosis. Upper abdomen: Status post cholecystectomy. Soft Tissues: Unremarkable. Bones: Within normal limits. IMPRESSION: 1. Findings suspicious for bronchogenic carcinoma with mediastinal and right hilar adenopathy. PET-CT is recommended for further evaluation. 2. Findings were discussed with Randi Lemus at 4:07 p.m. on 12/09/2022. Lung RADS Cat 4X - Findings with additional features which require [facility]. Lung-RADS 1.0 CATEGORIES: Category 0 - Prior chest CT exam(s) being located for comparison. Category 1 - Annual screening in 12 months. No nodules or definitely benign nodules. Category 2 - Annual screening in 12 months. Benign appearance. Nodules with low likelihood of becomin g active cancer. Category 3 - 6-month follow-up. Probably benign. Short-term follow-up suggested. Nodules with low lik elihood of becoming active cancer. Category 4A - 3-month follow-up and CT/PET if >8 mm in size. Suspicious finding. Findings which requi re additional testing. Category 4B - Findings which require additional testing and tissue sampling. Suspicious finding. Category 4X - Category 3 or 4 nodules with additional features or imaging findings that increases the suspicion of malignancy. Modifier S- Potentially clinically significant finding. (Non lung cancer) RADIATION DOSE DELIVERED: 74.08mGy.cm Total DLP 74.08mGy.cmTotal DLP DATA REPOSITORY: All CT scans at this facility are submitted to the National Radiology Data Registry (NRDR) Dose Index Registry (DIR) with the [employer] (ACR). RADIATION OPTIMIZATION: All CT scans at this facility use at least one of these dose optimization te chniques: automated exposure control; mA and/or kV adjustment per patient size (includes targeted exa ms where dose is matched to clinical indication); or iterative reconstruction.
== END ==
PROVIDERS: PCP Family Medicine; Visit Provider Family Medicine
DX: F17.210 Nicotine dependence, cigarettes, uncomplicated (principal); Z12.2 Encounter for screening for malignant neoplasm of respiratory organs; R91.8 Other nonspecific abnormal finding of lung field
CPT/HCPCS: 71271

== ENCOUNTER 2023-02-17 05:12 | Outpatient (CLI) | payer MEDICARE, MEDICAID, SELFPAY ==
[2023-02-17 09:48] LABS: ALT 21 U/L (14-59); AST 14 U/L (15-37); Albumin 3.1 g/dL (3.4-5.0); Alkaline Phosphatase 154 U/L (46-116); Anion Gap 5.9 mmol/L (3-11); BUN 19 mg/dL (7-18); Bilirubin, Total 0.4 mg/dL (0.2-1.0); CO2 34.1 mmol/L (21.0-32.0); CREATININE 0.8 mg/dL (0.55-1.02); Chloride 97 mmol/L (98-107); Estimated GFR 81.21 (mL/min/1.73m2); FREE T4 1.11 ng/dL (0.76-1.46); Glucose 141 mg/dL (74-106); Magnesium 2.3 mg/dL (1.8-2.4); Potassium 3.1 mmol/L (3.5-5.1); Sodium 137 mmol/L (136-145); TSH 1.12 uIU/mL (0.36-3.74); Total Protein 7.8 g/dL (6.4-8.2)
[2023-02-17 09:52] LABS: Abs Immature Grans 0.08 10^3/uL (0.0-0.06); Absolute Eosinophil Count 0.04 10^3/uL (0.0-0.7); Absolute Lymphocyte Count 1.45 10^3/uL (1.2-3.4); Absolute Neutrophil Count 10.56 10^3/uL (1.2-6.7); Basophils % 0.2; Eosinophils % 0.3; HCT 45.5 % (36.0-46.0); HGB 14.7 g/dL (11.2-15.7); Immature Grans % 0.6; MCH 28.9 pg (27.0-33.0); MCHC 32.3 % (32.0-36.0); MCV 90 fL (80-95); MPV 9.1 fL (8.0-11.0); Monocytes % 7.7; Neutrophils % 80.2; Platelet Count 258 10^3/uL (130-400); RBC 5.08 10^6/uL (3.93-5.22); RDW 14.3 % (11.7-14.6); RDW-SD 46.5 fL; WBC 13.17 10^3/uL (4.4-10.8)
[2023-02-17 09:53] LABS: Absolute Basophil Count 0.03 10^3/uL (0.0-0.2); Absolute Monocyte Count 1.01 10^3/uL (0.1-0.8)
[2023-02-18 08:40] LABS: Hepatitis B Surface Ag Negative (Negative)
[2023-02-18 09:20] LABS: Hepatitis B Surface Ab Positive (See Note)
[2023-02-18 10:16] LABS: Hepatitis C Ab w Rflx HCV PCR Reactive (Negative)
[2023-02-19 12:18] LABS: HCV RNA Qualitative Undetected (Undetected)
== END 2023-02-17 05:13 | disposition home or self-care (01) ==
PROVIDERS: PCP Family Medicine; Visit Provider Internal Medicine Medical Oncology
DX: Z79.899 Other long term (current) drug therapy (principal); C34.11 Malignant neoplasm of upper lobe, right bronchus or lung
CPT/HCPCS: 36415; 80053; 86706; 86803; 87340; 87522; 83735; 84439; 84443; 85025

== ENCOUNTER 2023-03-04 22:53 | Inpatient (IN) | payer MEDICARE, MEDICAID, SELFPAY ==
[2023-03-04] VITALS (10 sets, daily range): BP systolic 104–131; BP diastolic 73–76; PULSE 108–119; RESP 14–25; TEMP 36.5; O2SAT 84–90
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
--- NOTE | 2023-03-04 23:00 | RT.EKG_ITS ---
APPROVED REPORT Exam: Resting ECG Reason for Exam: fall Patient Location: E HR:114 bpm ECG Measurements Heart Rate 114 AXIS ND 147 P 47 QRSd 94 QRS -12 QT 331 T 49 QTc 456 Conclusion Sinus tachycardia...rate> 99 Physician: no stemi
[2023-03-04 23:26] LABS: Abs Immature Grans 0.09 10^3/uL (0.0-0.06); Absolute Basophil Count 0.05 10^3/uL (0.0-0.2); Absolute Eosinophil Count 0.16 10^3/uL (0.0-0.7); Absolute Lymphocyte Count 1.42 10^3/uL (1.2-3.4); Absolute Monocyte Count 0.91 10^3/uL (0.1-0.8); Basophils % 0.5; Eosinophils % 1.6; HCT 37.9 % (36.0-46.0); HGB 12.2 g/dL (11.2-15.7); Immature Grans % 0.9; Lymphocytes % 14.2; MCH 27.9 pg (27.0-33.0); MCHC 32.2 % (32.0-36.0); MCV 87 fL (80-95); MPV 8.7 fL (8.0-11.0); Monocytes % 9.1; Neutrophils % 73.7; Platelet Count 259 10^3/uL (130-400); RBC 4.38 10^6/uL (3.93-5.22); RDW 15.2 % (11.7-14.6); RDW-SD 48.2 fL; WBC 10.03 10^3/uL (4.4-10.8)
[2023-03-04 23:36] LABS: INR 1.3 (0.9-1.1); Prothrombin Time 12.4 sec (9.1-11.1)
[2023-03-04] MEDS: Normal Saline 1,000 ML 150 ML IV (23:40)
[2023-03-04 23:45] LABS: ALT 14 U/L (14-59); AST 22 U/L (15-37); Albumin 1.9 g/dL (3.4-5.0); Alkaline Phosphatase 134 U/L (46-116); Anion Gap 4.1 mmol/L (3-11); BUN 11 mg/dL (7-18); Bilirubin, Total 0.4 mg/dL (0.2-1.0); CO2 28.9 mmol/L (21.0-32.0); CREATININE 0.6 mg/dL (0.55-1.02); Calcium 8.3 mg/dL (8.5-10.1); Chloride 102 mmol/L (98-107); Estimated GFR 98.93 (mL/min/1.73m2); Glucose 151 mg/dL (74-106); Sodium 135 mmol/L (136-145); Total Protein 6.8 g/dL (6.4-8.2)
[2023-03-04] MEDS: Ketorolac 15 MG/ML VIAL IVP (23:53)
[2023-03-04] MEDS: HYDROmorphone 2 MG/ML SYR IVP (23:58)
[2023-03-05] VITALS (31 sets, daily range): BP systolic 79–135; BP diastolic 55–78; PULSE 70–114; RESP 16–24; TEMP 36.1–36.7; O2SAT 91–99; BMI 27.4
--- NOTE | 2023-03-05 | DI.RAD_ITS ---
Exam(s) XR HUMERUS RT EXAM: XR HUMERUS RT CLINICAL HISTORY: Pain, metastatic disease. TECHNIQUE: 2D digital imaging was performed. COMPARISON: CR XR HUMERUS LT from 03/05/2023 FINDINGS: Two views. No evidence of fracture nor dislocation. No osseous lesions in the right humerus. IMPRESSION: No significant osseous findings in the right humerus. DATA REPOSITORY: RADIATION DOSE DELIVERED:
--- NOTE | 2023-03-05 | DI.RAD_ITS ---
Exam(s) XR FEMUR LT EXAM: XR FEMUR LT CLINICAL HISTORY: Pain, metastatic disease. TECHNIQUE: 2D digital imaging was performed. COMPARISON: CR,XR XR FEMUR RT from 03/05/2023 FINDINGS: Two views There is no evidence of left femur fracture. No obvious femur lesion. Advanced degenerative changes in the medial compartment of the left knee noted. IMPRESSION: No left femur fracture. DATA REPOSITORY: RADIATION DOSE DELIVERED:
--- NOTE | 2023-03-05 | DI.RAD_ITS ---
Exam(s) XR HUMERUS LT EXAM: XR HUMERUS LT CLINICAL HISTORY: Pain, metastatic disease. TECHNIQUE: 2D digital imaging was performed. COMPARISON: CR XR FOREARM RT from 10/14/2021 FINDINGS: No evidence of fracture of the left humerus. No dislocation. No osseous lesions. No elbow joint ef fusion noted. IMPRESSION: No significant osseous findings in the left humerus. DATA REPOSITORY: RADIATION DOSE DELIVERED:
--- NOTE | 2023-03-05 00:02 | DI.RAD_ITS ---
Exam(s) XR CHEST 1V IN DI DEPT EXAM: XR CHEST 1V IN DI DEPT CLINICAL HISTORY: fall. TECHNIQUE: 2D digital imaging was performed. COMPARISON: CT CT CHEST LUNG CANCER SCREEN from 12/09/2022 FINDINGS: Single AP portable view. Heart size upper normal. There is now complete opacification of the right upper lobe. Highly suspic ious for malignancy given the findings on the recent CT scan of 12/09/2022. Healed right-sided rib f ractures noted. IMPRESSION: Complete consolidation of the right upper lobe. Highly suspicious for malignancy, particularly given findings on recent CT scan 12/09/2022. DATA REPOSITORY: RADIATION DOSE DELIVERED:
--- NOTE | 2023-03-05 00:02 | DI.RAD_ITS ---
Exam(s) XR HIP RT COMPLETE AP PELVIS EXAM: XR HIP RT COMPLETE AP PELVIS CLINICAL HISTORY: trauma, fall pain. TECHNIQUE: 2D digital imaging was performed. COMPARISON: No exams were available for comparison FINDINGS: 3 views There is an oblique fracture line extending from the mid intertrochanteric region through the subtroc hanteric region and into the proximal diaphysis. There is mild angulation and there is some displace ment of the fracture fragments. The ipsilateral femoral head and neck appear unremarkable. No other osseous findings in the pelvis. Hips exhibit no evidence of obvious degenerative change. IMPRESSION: Oblique fracture in the proximal right femoral diaphysis extending from the inferior intertrochanteri c region caudally, as described above. DATA REPOSITORY: RADIATION DOSE DELIVERED:
--- NOTE | 2023-03-05 00:45 | DI.RAD_ITS ---
Exam(s) XR FEMUR RT EXAM: XR FEMUR RT CLINICAL HISTORY: right hip fx, eval for femur fx. TECHNIQUE: 2D digital imaging was performed. COMPARISON: No exams were available for comparison FINDINGS: 3 views There is a displaced oblique fracture line extending from the intertrochanteric region down to the mi d diaphysis level. There is a lytic osseous lesion the inferior aspect of the fracture which measure s approximately 3 x 3.4 cm. No other lesions evident in the femur. IMPRESSION: Pathological oblique fracture as described above. There is approximately 1 cm displacement of the fr acture fragments. The pathologic lesion is seen at the inferior aspect of the fracture. DATA REPOSITORY: RADIATION DOSE DELIVERED:
--- NOTE | 2023-03-05 00:55 | DI.VRAD_ITS ---
PROCEDURE INFORMATION: Exam: XR Right Hip Exam date and time: 03/05/2023 00:25 Age: 67 years old Clinical indication: Injury or trauma; Blunt trauma (contusions or hematomas); Right; Hip; Injury details: Fall w h/o bone CA TECHNIQUE: Imaging protocol: Radiologic exam of the right hip. Views: 2 or 3 views hip with pelvis when performed. COMPARISON: CT ABDOMEN PELVIS W 06/28/2022 11:49 FINDINGS: Bones/joints: No acute fracture or listhesis in the pelvis. Acute oblique fracture of the right femoral diaphysis extends into the inferior intertrochanteric femur with mild apex posterior angulation and to 1 cm mediolateral distraction. On these views there is no definite underlying pathologic lesion however dedicated femoral films should be considered. Soft tissues: Surrounding swelling. IMPRESSION: Acute oblique fracture of the right femoral diaphysis extends into the inferior intertrochanteric femur with mild apex posterior angulation and to 1 cm mediolateral distraction. On these views there is no definite underlying pathologic lesion however dedicated femoral films should be considered. Dictated and Authenticated by: Ankita Bojorquez MD. Ordering:CHANDANA Zafar MD
--- NOTE | 2023-03-05 00:56 | DI.VRAD_ITS ---
PROCEDURE INFORMATION: Exam: XR Chest Exam date and time: 03/05/2023 00:15 Age: 67 years old Clinical indication: Injury or trauma; Blunt trauma (contusions or hematomas); Injury details: Fall w h/o bone CA TECHNIQUE: Imaging protocol: Radiologic exam of the chest. Views: 1 view. COMPARISON: CT CHEST LUNG CANCER SCREEN 12/09/2022 14:55 FINDINGS: Lungs: New complete consolidation of right upper lobe. Mild central interstitial prominence and vascular congestion are new as well. Pleural spaces: No pleural effusion. No pneumothorax. Heart/Mediastinum: The cardiac silhouette is upper limits of normal. Diaphragm: Elevated right hemidiaphragm. Bones/joints: Chronic healed right rib deformities. No displaced fracture. IMPRESSION: 1. New complete consolidation of right upper lobe. This is concerning for a central obstructive lesion with postobstructive consolidation. 2. Mild central interstitial prominence and vascular congestion are new as well. Dictated and Authenticated by: Ankita Bojorquez MD. Ordering:CHANDANA Zafar MD
[2023-03-05] MEDS: HYDROmorphone 2 MG/ML SYR 1 MG IVP (01:00)
--- NOTE | 2023-03-05 01:00 | DI.CT_ITS ---
Exam(s) CT LOWER EXTREMITY RT WO EXAM: CT LOWER EXTREMITY RT WO CLINICAL HISTORY: eval for fx. TECHNIQUE: Imaging Protocol: Axial computed tomography images with coronal and sagittal reformatted images were created and reviewed. CONTRAST MATERIAL: NONE COMPARISON: No exams were available for comparison FINDINGS: OSSEOUS: There is an obliquely orientated extending from the low intertrochanteric region through the subtrochanteric region down to the level of the midshaft. Approximately 1 cm displacement. There i s a lytic lesion in the medullary cavity at the midshaft level coinciding with the inferior aspect of the fracture. This is better appreciated on plain films than on the CT. No additional fractures lo wer down in the femur. No tibial plateau fracture. IMPRESSION: Oblique subtrochanteric fracture. Most probably pathologic fracture given that there appears to be a lytic lesion in the medullary cavity of the mid femur. This patient has known lung malignancy. RADIATION DOSE DELIVERED: Total DLP DATA REPOSITORY: All CT scans at this facility are submitted to the National Radiology Data Registry (NRDR) Dose Index Registry (DIR) with the [employer] ([employer]). RADIATION OPTIMIZATION: All CT scans at this facility use at least one of these dose optimization te chniques: automated exposure control; mA and/or kV adjustment per patient size (includes targeted exa ms where dose is matched to clinical indication); or iterative reconstruction.
--- NOTE | 2023-03-05 01:05 | ED.PROG_ITS ---
Date of service: 03/05/23 Time of Service: 01:05 Medical Decision Making Case was signed out to me by my colleague Charisma Toy, please refer to HPI, physical exam, assessment and plan. At time of signout we are awaiting x-ray results. X-ray of the hip shows evidence of a femur fracture of the right femoral diaphysis extending into the inferior intertrochanteric femur with a mild apex posterior angulation. Patient's chest x-ray shows evidence of questionable mild pneumonia. Patient has been started on ceftriaxone and azithromycin. Discussed the case with orthopedics Dr. Saucedo, he agrees with admission. He does request CT scan of the femur. X-ray of the femur is already been ordered. Results came back later in the evening and show evidence of a lytic lesion at the distal end of the fracture. Discussed the case with the hospitalist Dr. Santos Dillon, he agrees with the assessment and plan. I will place admission orders on his behalf on his request. I have extensively reviewed the treatment plan with the patient. I have addressed all patient concerns at this time. I have also discussed the plan with the admitting physician and they agree with the current assessment and plan and have agreed to assume responsibility for the patient. All parties demonstrate verbal understanding and agreement with our assessment and plan at this time. The documentation in this chart was dictated using Relay dictation software. Please excuse any dictation errors. FINDINGS: Bones/joints: There is an obliquely oriented, subtrochanteric fracture of the proximal right femur. Soft tissues: Normal. IMPRESSION: There is an obliquely oriented, subtrochanteric fracture of the proximal right femur. Thank you for allowing us to participate in the care of your patient. Dictated and Authenticated by: Luis Enrique Segura MD 03/05/2023 2:35 AM Eastern Time ([place] & [place]) FINDINGS: Bones/joints: Oblique pathologic fracture proximal femoral shaft extending to the level of the lesser trochanter. 3.7 cm lytic lesion femoral shaft at the distal end of the fracture. No other fractures identified. No dislocation. Soft tissues: Soft tissue edema proximal thigh. IMPRESSION: Oblique pathologic fracture proximal femoral shaft extending to the level of the lesser trochanter. 3.7 cm lytic lesion femoral shaft at the distal end of the fracture. Thank you for allowing us to participate in the care of your patient. Dictated and Authenticated by: Tk Ochoa MD 03/05/2023 2:42 AM Eastern Time ([place] & [place]) Sign Out Sign Out Data: Sign Out Comment: 67-year-old hospice patient with metastatic colon cancer presents for evaluation of right hip pain after mechanical fall. X-ray and labs pending at time of shift change signed out to Dr. Manuel for final diagnosis and disposition Last updated by Charisma Yeager NP at 03/04/23 23:12 Discharge Plan Disposition Patient Disposition: Admit to [facility] Discharge Details Chief Complaint: Orthopedic Clinical Impression: Femur fracture, right Primary Care Provider: Jaquelin Hastings V ED Provider: Vidal Manuel Home Meds and New Rx's Prescriptions: No Action lactulose 20 GM/30 ML solution 45 g PO BID naloxone [Narcan] 4 MG spray,non-aerosol 4 mg NS PRN Qty: 2 fluticasone propionate 50 mcg/actuation spray,suspension 1 spray intranasal DAILY Rx Instructions: administer into each nostril cyanocobalamin (vitamin B-12) 1,000 mcg tablet 1,000 mcg PO DAILY levothyroxine 25 mcg tablet 25 mcg PO DAILY clonazepam 1 mg tablet 0.5 mg PO TID PRN Rx Instructions: TAKE 0.5 TABLET TID PRN. MAY TAKE AN EXTRA TABLET UP TO 6 DOSES PER MONTH PRN docusate sodium 100 mg capsule 200 mg PO BID Rx Instructions: mmd 400mg polyethylene glycol 3350 17 gram/dose powder 17 g PO DAILY methylphenidate HCl 10 mg tablet 10 mg PO DAILY ropinirole 0.5 mg tablet See Rx Instructions PO QHS Rx Instructions: orally every day at bedtime; administer 1-3 hours before bedtime, can increast ot 2 at hs prn docosanol [Abreva] 10 % cream See Rx Instructions topical ONCE Rx Instructions: one application at affected area of lesion 5xday when itching starts and use until healed topically once; vitamin B complex [B Complex-Vitamin B12] Tablet 1 tab PO DAILY pantoprazole 40 mg tablet,delayed release (DR/EC) 40 mg PO DAILY magnesium citrate Solution 150 ml PO ONCE PRN (Reason: constipation) Rx Instructions: as a single dose lubiprostone [Amitiza] 24 mcg capsule 24 mcg PO DAILY hydromorphone 2 mg tablet 2 mg PO TID PRN (Reason: severe pain (scale score 7-10)) loratadine 5 mg/5 mL solution 10 ml PO DAILY PRN methadone 10 mg tablet See Rx Instructions PO DAILY Rx Instructions: 140-180 mg daily total orally daily; take 5 tabs Q AM, 4 TABS Q 9AM, 3 TABS Q 1PM, THEN 4 TABS Q HS FOR CHRONIC PAIN oxycodone 15 mg tablet See Rx Instructions PO BID PRN Rx Instructions: 15 mg up to 7 pills a day orally twice a day PRN; TAKE 2 TABLETS Q AM AND Q HS. THEN TAKE 1/2-1 TAB TID during the day. MAX 6.5 tabs daily promethazine 25 mg tablet 50 mg PO TID Rx Instructions: may have an additional tablet up to 15 days/month lorazepam 1 mg tablet 1 mg PO Q4H PRN (Reason: anxiety) Qty: 10 5RF Rx Instructions: hospice morphine concentrate 100 mg/5 mL (20 mg/mL) solution See Rx Instructions PO .COMPLEX MDD 100mg PRN (Reason: pain or shortness of breath COMFORT JACOBO) Qty: 30 0RF Rx Instructions: Take 0.25mL - 1mL po/SL q1-4 hrs orally PRN; HOSPICE fentanyl 100 mcg/hr patch 72 hour 1 patch transdermal Q48H MDD 200 mcg Qty: 10 0RF Rx Instructions: apply with 50 mcg patch for total of 150 mcg q 48 hrs HOSPICE dexamethasone 4 mg tablet 4 mg PO BID Qty: 30 1RF Rx Instructions: hospice ondansetron HCl 4 MG tablet 4 mg PO DIRECTED PRN Patient Comments: 05/10/14 Pt states she hasn't taken in a couple of days. PG 12/20/13- pt has not taken for a couple of weeks albuterol sulfate 8.5 GM HFA aerosol inhaler 2 puff Inhalation QID PRN PRN
[2023-03-05] MEDS: cefTRIAXone 2 GM/50 ML BAG IVPB ×2 (01:10→23:58)
[2023-03-05] MEDS: AZITHROMYCIN 500 MG in Normal Saline 250 ML 250 MG IVPB (02:20)
--- NOTE | 2023-03-05 02:36 | DI.VRAD_ITS ---
PROCEDURE INFORMATION: Exam: CT Right Lower Extremity Without Contrast; Thigh Exam date and time: 03/05/2023 1:56 AM Age: 67 years old Clinical indication: Injury or trauma; Blunt trauma; Thigh or upper leg; Right; Injury details: Fall, h/o bone CA TECHNIQUE: Imaging protocol: CT of the right lower extremity without contrast was performed. Exam focused on the thigh. COMPARISON: MR LOWER EXTREMITY RT WO/W 06/04/2022 2:01 PM FINDINGS: Bones/joints: There is an obliquely oriented, subtrochanteric fracture of the proximal right femur. Soft tissues: Normal. IMPRESSION: There is an obliquely oriented, subtrochanteric fracture of the proximal right femur. Dictated and Authenticated by: Luis Enrique Segura MD. Ordering:ROSELYN Drake MD
--- NOTE | 2023-03-05 02:42 | DI.VRAD_ITS ---
PROCEDURE INFORMATION: Exam: XR Right Femur Exam date and time: 03/05/2023 1:44 AM Age: 67 years old Clinical indication: Injury or trauma; Blunt trauma; Thigh or upper leg; Right; Injury details: Fall, h/o bone CA TECHNIQUE: Imaging protocol: Radiologic exam of the right femur. Views: 2 views. COMPARISON: MR LOWER EXTREMITY RT WO/W 06/04/2022 2:01 PM FINDINGS: Bones/joints: Oblique pathologic fracture proximal femoral shaft extending to the level of the lesser trochanter. 3.7 cm lytic lesion femoral shaft at the distal end of the fracture. No other fractures identified. No dislocation. Soft tissues: Soft tissue edema proximal thigh. IMPRESSION: Oblique pathologic fracture proximal femoral shaft extending to the level of the lesser trochanter. 3.7 cm lytic lesion femoral shaft at the distal end of the fracture. Dictated and Authenticated by: Tk Ochoa MD. Ordering:ROSELYN Drake MD
[2023-03-05 02:45] LABS: COVID-19 PCR Negative (Negative); Influenza A PCR Negative (Negative); Influenza B PCR Negative (Negative); RSV PCR Negative (Negative)
[2023-03-05 02:51] LABS: Source Nasopharynx
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
[2023-03-05] MEDS: HYDROmorphone 2 MG/ML SYR IVP ×2 (05:25→07:56)
[2023-03-05] MEDS: Levothyroxine 25 MCG TAB PO (05:25)
--- NOTE | 2023-03-05 05:49 | NUR.NOTE ---
Nursing Note: Per home medication list, patient on 150mcg fentanyl transdermal patches. Upon assessment, patient found to have 2 50mcg patches and [address] on R shoulder. CC notified, patient endorsed a change of dose yesterday per hospice care team. Home medication list updated.
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
[2023-03-05 06:47] LABS: HCT 33.8 % (36.0-46.0); HGB 10.9 g/dL (11.2-15.7); MCH 28.3 pg (27.0-33.0); MCHC 32.2 % (32.0-36.0); MCV 88 fL (80-95); MPV 8.9 fL (8.0-11.0); Platelet Count 241 10^3/uL (130-400); RBC 3.85 10^6/uL (3.93-5.22); RDW 15.2 % (11.7-14.6); RDW-SD 48.9 fL; WBC 8.53 10^3/uL (4.4-10.8)
[2023-03-05 07:18] LABS: ALT 10 U/L (14-59); AST 23 U/L (15-37); Albumin 1.6 g/dL (3.4-5.0); Alkaline Phosphatase 115 U/L (46-116); Anion Gap 6.7 mmol/L (3-11); BUN 12 mg/dL (7-18); Bilirubin, Total 0.3 mg/dL (0.2-1.0); CO2 26.3 mmol/L (21.0-32.0); CREATININE 0.6 mg/dL (0.55-1.02); Calcium 7.8 mg/dL (8.5-10.1); Chloride 105 mmol/L (98-107); Estimated GFR 98.93 (mL/min/1.73m2); Glucose 115 mg/dL (74-106); Potassium 4.3 mmol/L (3.5-5.1); Sodium 138 mmol/L (136-145)
[2023-03-05 07:32] LABS: TSH (W/Ref FT4) 1.62 uIU/mL (0.36-3.74)
[2023-03-05] MEDS: Polyethylene Glycol 3350 17 GM PACKET PO (07:52)
[2023-03-05] MEDS: Vitamins B Comp w/C TAB 1 TAB PO (07:55)
[2023-03-05] MEDS: Methylphenidate 10 MG TAB PO (07:55)
[2023-03-05] MEDS: Cyanocobalamin 100 MCG TABLET 1000 MCG PO (07:55)
[2023-03-05] MEDS: Promethazine 25 MG TAB 50 MG PO ×2 (07:56→13:27)
[2023-03-05] MEDS: Pantoprazole 40 MG TABCR PO (07:57)
[2023-03-05] MEDS: Dexamethasone 4 MG TAB PO (07:57)
[2023-03-05] MEDS: Docusate Sodium 100 MG CAP 200 MG PO (07:57)
[2023-03-05] MEDS: Ondansetron 4 MG/2 ML VIAL IVP (09:52)
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
--- NOTE | 2023-03-05 11:06 | RESPIRATORY ---
Patient has PRN Home O2 ordered for 1-4L through [facility]. DME: [facility]. Patient does not have NIV for EDDIE diagnosis.
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
--- NOTE | 2023-03-05 16:56 | W.PM.OP ---
Date of service: 03/05/23 Time of Service: 17:00 Operative Note Operative Note DATE OF PROCEDURE: 03/05/23 PRE-OP DIAGNOSIS: Pathologic right femoral shaft fracture POST-OP DIAGNOSIS: same PROCEDURE: 1. Right femur bone biopsy, CPT# 73871 2. Right femur intramedullary nailing, CPT #56069 SURGEON: Yosvany Saucedo DATA WAREHOUSE SPECIALIST: Poppy Sharp ANESTHESIA TYPE: Local By Surgeon, General LMA/ETT and Primary Nerve Block Refer to Anesthesia Record ESTIMATED BLOOD LOSS: 50 PATHOLOGY: other (pathologic fracture specimen ) COMPLICATIONS: None Patient was transported to: ICU Patient's condition: critical Implants: Synthes TFNA 11x 340 mm with 90mm helical blade and 2x distal locking screws Indications: Please see complete medical record for details. Procedure Description: In the operating room, general and regional anesthesia were induced. The patient was positioned supine on the [place] room table. All bony prominences were well-padded. Preoperative antibiotics were administered. The right thigh was prepped and draped in the usual sterile fashion. The correct patient, procedure, and side of the procedure were all verified prior to incision. 50 cc of 0.25% bupivacaine containing epinephrine was infiltrated about the planned entry now, cephalomedullary, biopsy, and distal locking surgical sites. Fluoroscopy was used to localize the pathologic fracture, a small direct lateral incision was made, intermuscular plane direct to the lytic lesion and a pituitary rongeur was used to obtain soft tissue samples. The fracture was then grossly reduced with traction, external rotation, and abduction. A moderately sized lateral incision was made about the proximal aspect of the fracture, IT band split, and collinear clamp carefully placed about the proximal femur and used to secure fracture reduction. The leg was then brought back to the typical hip nailing position with the foot in neutral rotation and extremity in slight adduction. The proximal femoral start site was used, localized with guidewire, proximal femur opened, and ball tipped guidewire passed carefully down the proximal femur fracture site, passed the lytic lesion, and into the distal femur. It was carefully secured in a central position above the knee. Reaming was done carefully and slowly given the patient's hemodynamic status, poor respiratory fraction, and metastatic lesion starting with 8.5 mm reamer, going up by 1 mm increments, until chatter was reached at 10.5 mm, and then in 0.5 mm increments up to 12 mm. Depth gauge was used to measure appropriately length nail. Length was between 340 and 360 mm so the shoulder 340 mm length was chosen although this would lead slightly more distal femur unprotected. Nail was assembled to the jig, it was then passed into the proximal femur over the guidewire, rotated to match the femoral anterior bow, and then passed past the fracture, and placed at the appropriate height relative to the femoral head neck for cephalomedullary screw and then inferior to central position. Collinear clamp was removed and the fracture maintained its reduction. Cephalomedullary jig was then inserted with the proximal incision extended slightly distally down to bone and guidewire directed into a low central position in the femoral head. Lateral cortex open, helical blade drill was used, and appropriately helical blade placed. The nail was statically locked. Attention was then turned to the distal part of the nail, perfect [place] techniques was used to place to static lateral to medial locking screws. The jig was then removed. Final fluoroscopic x-rays showed appropriate hardware placement and excellent fracture alignment. All surgical sites were copiously irrigated with normal saline. IT band was closed using 0 Vicryl buried interrupted. Subcutaneous tissue closed using 2-0 Monocryl. Skin closed using 3-0 Monocryl. Skin glue applied over all incisions. Surrounded by Mastisol and Mepilex Band-Aids applied over each incision. As planned, the patient was transferred to the ICU intubated and sedation for critical care monitoring due to her pulmonary status and pain management needs.
--- NOTE | 2023-03-05 17:00 | PGE_ITS ---
Date of Service Date of service: 03/05/23 Time of Service: 20:29 Assessment and Plan Assessment and plan (1) Pathological fracture of right femur: Status: Acute Assessment and plan: 67-year-old female postop day #0 status post Right pathologic femoral shaft fracture intramedullary nailing with bone biopsy Patient is intubated and sedated pending transfer to the ICU as planned from OR. Right thigh dressings are clean dry and intact. Thigh compartments are all compressible. Dorsalis pedis pulse is 2+. X-rays of her contralateral femur and bilateral humeri do not show any lytic lesions or impending fractures requiring additional orthopedic surgery. Ceftriaxone for pneumonia will cover usual 24 hours of postoperative cefazolin antibiotic. Continue bilateral SCDs and/or Selvin stocking as DVT prophylaxis and review goals of care with the patient regarding DVT prophylaxis: ASA 81 mg twice daily for 30 days is probably appropriate considering palliative care situation, but Lovenox or heparin could be used while inpatient. When appropriate, start out of bed and physical therapy: Weightbearing as tolerated with assist device right lower extremity. The patient declined radiation therapy previously, but I would consider revisiting this topic with the patient pacifically for the pathologic fracture. Critical care per nurse workforce manager and hospitalist teams. Optimize respiratory status and pain control. Objective Last Vital Signs Temp 98.1 F 03/05/23 14:57 Pulse 109 H 03/05/23 14:57 Resp 16 03/05/23 14:57 BP 119/71 03/05/23 14:57 Pulse Ox 93 03/05/23 14:57 Laboratory Results - last 24 hr 03/04/23 03/05/23 03/05/23 23:20 02:05 06:25 WBC 10.03 8.53 RBC 4.38 3.85 L Hgb 12.2 10.9 L Hct 37.9 33.8 L MCV 87 88 MCH 27.9 28.3 MCHC 32.2 32.2 RDW 15.2 H 15.2 H Plt Count 259 241 MPV 8.7 8.9 Immature Gran % 0.9 Neutrophils % 73.7 Lymphocytes % 14.2 Monocytes % 9.1 Eosinophils % 1.6 Basophils % 0.5 Nucleated RBC % 0.0 Absolute Neutrophils 7.40 H Absolute Lymphocytes 1.42 Absolute Monocytes 0.91 H Absolute Eosinophils 0.16 Absolute Basophils 0.05 PT 12.4 H INR 1.3 H Sodium 135 L 138 Potassium 4.0 4.3 Chloride 102 105 Carbon Dioxide 28.9 26.3 Anion Gap 4.1 6.7 BUN 11 12 Creatinine 0.6 0.6 Est GFR (CKD-EPI 2020) 98.93 98.93 Glucose 151 H 115 H Calcium 8.3 L 7.8 L Magnesium 2.0 Total Bilirubin 0.4 0.3 AST 22 23 ALT 14 10 L Alkaline Phosphatase 134 H 115 Total Protein 6.8 6.0 L Albumin 1.9 L 1.6 L TSH 1.62 COVID-19 Source Nasopharynx SARS-CoV-2 (PCR) Negative Influenza Type A (PCR) Negative Influenza Type B (PCR) Negative RSV (PCR) Negative Patient ABO/Rh O Positive Antibody Screen NEGATIVE Time Spent with Patient Time Spent with Patient: 25-34 minutes Time was spent: preparing to see the patient(eg.review tests), ordering medications,tests, procedures, referring, communicating with other health patient care director, indepentently interpreting results and care coordination
[2023-03-05] MEDS: Lactated Ringers 1,000 ML 125 ML IV ×2 (17:02→21:01)
[2023-03-05] MEDS: ceFAZolin 2 GM/50 ML BAG 100 GM (17:10)
--- NOTE | 2023-03-05 18:02 | BONE_PTH ---
PATIENT: Oneyda Mayberry LOC: ICU U#:[id number] AGE/SX: 67/F ROOM: ICU.219 RE03/05/[address]: Tk Jeffries : 1955 BED: A DIS: 03/07/2023 SPEC #: [id number] RECD: 03/08/23 12:07 STATUS: IVAN REQ #: [id number] ANALISA: 03/05/23 18:[address]: Tk Jeffries DEPT: Surgical Specimen RECD BY: Yesika Morales ENTERED: 03/08/23 12:08 SP TYPE: Bone OTHR DR: Magui Lyon,Jaquelin Saucedo MD [facility] Tissues: 1 - BONE BX/CURRETTE NOT PATH FRACTURE Procedures: IMMUNOPEROXIDASE STAIN GROSS AND MICRO LEVEL 5 Comments: [id number]
[2023-03-05 18:22] LABS: BE 1 mmol/L (-2-3); FIO2 60 %; HCO3 26 mmol/L (22-26); Site Left Radial; pCO2 46 mmHg (35-45); pH 7.36 (7.35-7.45); pO2 71 mmHg (80-105); sO2 94 % (95-98); tCO2 24 mmol/L (23-27)
--- NOTE | 2023-03-05 18:41 | W.ANESNERVE ---
Nerve Block Single Injection Procedure Date and Time Date Performed: 03/05/23 Procedure Start: 17:15 Location Where Procedure Performed Procedure Location: Operating Room Procedure Stop: 17:25 Reason Performed: Postoperative Analgesia Requesting Provider: Yosvany Saucedo Timeout Performed Timeout Performed: Yes Monitoring Used ECG, Blood Pressure, SpO2, ETCO2 and See EMR for corresponding vital signs Sterility Sterility: Hand Hygiene, Surgical Cap, Surgical Mask, Sterile Gloves, Eye Protection and Chlorhexidine Sedation Given During Procedure Sedation Given (Indicate Dose Given): Other: Medication/Route/Dose:: See plexus documentation Patient Mental Status Patient Mental Status: Performed under general anesthesia Nerve Block 1st Nerve Block: Laterality: Right Block Type: Femoral Ultrasound Image Saved?: Yes Needle / Catheter Used: 100mm SonoPlex II Local Anesthetic Bolus (Indicate Dose Given): None, Injected in 3-5ml increments after negative blood aspiration, Bupivacaine 0.5% Dose:: 0.5%/10cc (50mg) and Exparel Dose:: 1.33%/10cc (133mg) Additives (Indicate Dose Given): Epinephrine to make 1:200,000 (5mcg/ml) Dose:: 50mcg Ultrasound: Sterile probe cover and gel used Nerve Stimulator: Not Used Paresthesia: None Procedure Tolerated: No Complications and Patient tolerated well Procedure Outcome: Successful Performed By: Sukhwinder Aleman
[2023-03-05] MEDS: Normal Saline 100 ML 360 ML (18:45)
[2023-03-05] MEDS: Bupivacaine 0.25% Pres-Free 30 ML VIAL (18:45)
[2023-03-05] MEDS: Tranexamic Acid 1,000 MG/10 ML VIAL 1000 MG (18:45)
[2023-03-05] MEDS: EPINEPHrine 10 MG/10 ML ML (18:45)
--- NOTE | 2023-03-05 19:48 | DI.RAD_ITS ---
Exam(s) XR HIP RT IN OR EXAM: XR HIP RT IN OR CLINICAL HISTORY: right femur fracture TECHNIQUE: 2D and realtime digital imaging was performed. CONTRAST MATERIAL: Refer to procedure report. COMPARISON: CR XR FEMUR LT from 03/05/2023 FINDINGS: Fluoroscopy was provided for Dr. Saucedo during the performance of a reduction internal fixation of th e femoral fracture. Please refer to the procedure report for complete details. Ka,r=10.8 mGy IMPRESSION: RADIATION DOSE DELIVERED:
[2023-03-05] MEDS: PROPOFOL 1,000 MG/100 ML BTL 32.659 MG IV (21:10)
[2023-03-05] MEDS: Norepinephrine in D5W 8 MG/250 ML BAG 7.5 MG IV (21:30)
--- NOTE | 2023-03-05 21:37 | PDOC.ANES ---
Central Venous Line Placement Date Performed: 03/05/23 Procedure Time: 20:30 Procedure Location: Operating Room Requesting Provider: Yosvany Saucedo Standard Monitors Applied: ECG, Blood Pressure, SpO2, ETCO2 and See EMR for corresponding vital signs Pt. Position: Supine Timeout Performed: Yes Sedation Given (Indicate Dose Given): Other: Medication/Route/Dose:: See Plexus documentation Patient Mental Status: Performed under general anesthesia Sterility: Hand Hygiene, Surgical Cap, Surgical Mask, Sterile Gloves, Sterile Drape/Sheet, Sterile Gown and Eye Protection Laterality: Right Insertion Site: Internal Jugular (IJ) Central Line Type: Triple Lumen Catheter Insertion Procedure: Vessel accessed with needle, Guidewire placed with ease, Extension tubing fills with blood, then empties easily with gravity, Dermatotomy (skin sundeep) made with scalpel, Dilator placed without resistance, Introducer/Catheter placed without resistance, Guidewire removed and Claves placed, blood withdrawn, ports flushed and clamped Dressing: Sorbaview Dressing Placed, Tegaderm Applied, BioPatch and Sutured in Place Catheter Depth at Skin (cm): 20 Placement Confirmation: Confirmation X-Ray Ordered Ultrasound: Sterile probe cover and gel used Ultrasound Image Saved?: No Number of Attempts (See previous attempts in note section): 2 Procedure Tolerated: No Complications and Patient tolerated well Procedure Outcome: Successful Performed By: Sukhwinder Aleman
[2023-03-05 21:54] LABS: BE 0 mmol/L (-2-3); HCO3 26 mmol/L (22-26); pCO2 46 mmHg (35-45); pH 7.36 (7.35-7.45); pO2 73 mmHg (80-105); sO2 95 % (95-98); tCO2 24 mmol/L (23-27)
[2023-03-05 21:55] LABS: FIO2L 45 L; Site Arterial Line
--- NOTE | 2023-03-05 22:17 | DI.VRAD_ITS ---
PROCEDURE INFORMATION: Exam: XR Chest Exam date and time: 03/05/2023 21:25 Age: 67 years old Clinical indication: Device placement; Patient HX: S/P central line TECHNIQUE: Imaging protocol: Radiologic exam of the chest. Views: 1 view. COMPARISON: CR XR CHEST 1V IN DI DEPT 03/05/2023 00:15 FINDINGS: Tubes, catheters and devices: Right jugular catheter projects over the lower right atrium. Retraction by 4 cm would reach the upper cavoatrial junction. Airway: Endotracheal and nasogastric tubes are satisfactory. Lungs: Moderate increasing left basilar opacity, dense right upper lobe/perihilar opacities slightly improved after intubation. Pleural spaces: Small bilateral pleural fluid is possible. No pneumothorax. Heart/Mediastinum: No significant cardiomegaly for position and projection. Bones/joints: No acute fracture. IMPRESSION: 1. Right jugular catheter projects over the lower right atrium. Retraction by 4 cm would reach the upper cavoatrial junction. 2. Endotracheal and nasogastric tubes are satisfactory. 3. Moderate increasing left basilar opacity, dense right upper lobe/perihilar opacities slightly improved after intubation. Dictated and Authenticated by: Ankita Bojorquez MD. Ordering:DELIO Frey MD
--- NOTE | 2023-03-05 22:23 | DI.RAD_ITS ---
Exam(s) XR PORTABLE CHEST AP EXAM: XR PORTABLE CHEST AP CLINICAL HISTORY: s/p central line TECHNIQUE: 2D digital imaging was performed. COMPARISON: CR,XR XR CHEST 1V IN DI DEPT from 03/05/2023 FINDINGS: Multiple leads as well as oxygen tubing overlie the chest. Endotracheal tube with tip projecting at the level of the aortic arch. The internal jugular central line is positioned low in the right atrium. LUNGS: Suboptimal pulmonary inflation. Some interval clearing of right upper lobe. No new area of i ncreased density at the medial left lung base. No definite effusion. No pneumothorax HEART: Normal size. AORTA: Normal diameter. BONES: Unremarkable for age. Soft tissues: Nasogastric tube projects in the stomach. IMPRESSION: Satisfactory position of NG tube and endotracheal tube. Right internal jugular catheter projects low in the right atrium and should be pulled back. Improvement in aeration of right upper lobe. New left lower lobe opacity, infiltrate versus atelectasis. DATA REPOSITORY: RADIATION DOSE DELIVERED:
--- NOTE | 2023-03-05 22:52 | DI.RAD_ITS ---
Exam(s) XR PORTABLE CHEST AP EXAM: XR PORTABLE CHEST AP CLINICAL HISTORY: central line placement TECHNIQUE: 2D digital imaging was performed. COMPARISON: CR,XR XR PORTABLE CHEST AP from 03/05/2023 FINDINGS: The endotracheal tube and nasogastric tubes are unchanged in position. The right internal jugular c entral line has old back now project project near the cavoatrial junction. LUNGS: Mild interval improvement of right upper and left lower lobe infiltrates. HEART: Normal size. AORTA: Normal diameter. BONES: Unremarkable for age. Soft tissues: Unremarkable. IMPRESSION: Satisfactory positioning of central venous catheter. DATA REPOSITORY: RADIATION DOSE DELIVERED:
--- NOTE | 2023-03-05 22:56 | DI.VRAD_ITS ---
PROCEDURE INFORMATION: Exam: XR Chest Exam date and time: 03/05/2023 22:42 Age: 67 years old Clinical indication: Device placement; Other: Central line placement TECHNIQUE: Imaging protocol: Radiologic exam of the chest. Views: 1 view. COMPARISON: XR PORTABLE CHEST AP 03/05/2023 21:25 FINDINGS: Tubes, catheters and devices: The right jugular catheter has been retracted into satisfactory position projecting over upper cavoatrial junction. Endotracheal tube and NGT satisfactory. Lungs: Continued slight improvement in aeration of right upper and left lower lung zones. The lungs appear hyperinflated. Pleural spaces: Minor pleural fluid suspected bilaterally. No pneumothorax. Heart/Mediastinum: No cardiomegaly. Bones/joints: No acute fracture. IMPRESSION: 1. The right jugular catheter has been retracted into satisfactory position projecting over upper cavoatrial junction. Endotracheal tube and NGT satisfactory. 2. Continued slight improvement in aeration of right upper and left lower lung zones. Dictated and Authenticated by: Ankita Bojorquez MD. Ordering:DELIO Frey MD
[2023-03-05] MEDS: Normal Saline Flush 10 ML SYR IVP (23:58)
[2023-03-06] VITALS (108 sets, daily range): BP systolic 92–140; BP diastolic 7–95; PULSE 69–118; RESP 12–27; TEMP 31–37.1; O2SAT 90–100
[2023-03-06] MEDS: PROPOFOL 1,000 MG/100 ML BTL 23.95 MG IV (01:22)
[2023-03-06] MEDS: AZITHROMYCIN 500 MG in Normal Saline 250 ML 250 MG IVPB (02:35)
[2023-03-06] MEDS: Water,Injection,Sterile 10 ML VIAL (02:35)
[2023-03-06 06:46] LABS: Bilirubin Negative (Negative); Blood Negative (Negative); Clarity Clear (Clear); Glucose Negative (Negative); Ketones Negative (Negative); Leukocyte Esterase Negative (Negative); Nitrite Negative (Negative); Urobilinogen 0.2 mg/dL (Up to 0.2); pH 5.5 (5-8)
[2023-03-06 06:53] LABS: HCT 31.6 % (36.0-46.0); HGB 10.3 g/dL (11.2-15.7); MCH 28.2 pg (27.0-33.0); MCHC 32.6 % (32.0-36.0); MCV 87 fL (80-95); MPV 9.5 fL (8.0-11.0); Platelet Count 275 10^3/uL (130-400); RBC 3.65 10^6/uL (3.93-5.22); RDW 15.2 % (11.7-14.6); RDW-SD 48.1 fL; WBC 9.86 10^3/uL (4.4-10.8)
[2023-03-06 07:12] LABS: Anion Gap 5.8 mmol/L (3-11); BUN 11 mg/dL (7-18); CO2 27.2 mmol/L (21.0-32.0); CREATININE 0.7 mg/dL (0.55-1.02); Calcium 8.2 mg/dL (8.5-10.1); Chloride 106 mmol/L (98-107); Estimated GFR 95.32 (mL/min/1.73m2); Glucose 125 mg/dL (74-106); Potassium 4.2 mmol/L (3.5-5.1); Sodium 139 mmol/L (136-145)
--- NOTE | 2023-03-06 07:56 | NUR.NOTE ---
Breathing trials begin at 07:20 a.m. Patient is now breathing on her own while still intubated. Patient is on pressure support 10/5 with FIO2 at 45%, peep of 5.Nursing Note:
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
[2023-03-06] MEDS: Cyanocobalamin 500 MCG TAB 1000 MCG PO (08:47)
[2023-03-06 08:48] LABS: Lab Add On Test COMPLETED
[2023-03-06] MEDS: Levothyroxine 25 MCG TAB PO (08:48)
[2023-03-06] MEDS: fentaNYL 100 MCG PATCH 200 MCG TD (08:48)
[2023-03-06] MEDS: Dexamethasone 4 MG TAB PO ×2 (08:48→21:26)
[2023-03-06] MEDS: Pantoprazole 40 MG TABCR PO (08:49)
[2023-03-06] MEDS: Methylphenidate 10 MG TAB PO (08:49)
[2023-03-06] MEDS: Promethazine 25 MG TAB 50 MG PO ×3 (08:49→21:25)
[2023-03-06] MEDS: Vitamins B Comp w/C TAB 1 TAB PO (08:50)
[2023-03-06 09:04] LABS: Magnesium 1.9 mg/dL (1.8-2.4)
--- NOTE | 2023-03-06 09:17 | NUR.NOTE ---
Patient is successfully extubated. Patient now on high flow optiflow machine at 53% and 40 liters of O2 sating 95%.Nursing Note:
[2023-03-06] MEDS: HYDROmorphone 2 MG/ML SYR IVP ×2 (09:36→21:24)
--- NOTE | 2023-03-06 11:56 | ANES_ITS ---
Anesthesia Note Date of Service: March 06, 2023 Anesthesia Note: RE: Central Line, Right IJ February, Pulled back RIJ to 14cm [facility]. Re-secured and CXR was performed. Ciara Aleman CRNA
--- NOTE | 2023-03-06 11:56 | PDOC.ANES ---
Anesthesia Note Date of Service: March 06, 2023 Anesthesia Note: RE: Central Line, Right IJ February, Pulled back RIJ to 14cm [facility]. Re-secured and CXR was performed. Ciara Aleman CRNA
--- NOTE | 2023-03-06 11:58 | W.ANESPOSTOP ---
Postoperative Evaluation Date, Time and Location Date Performed: 03/06/23 Time Performed: 11:59 Patient Location: Intensive Care Unit Vital Signs Most Recent Imported Vital Signs: Most Recent Vital Signs Temp Pulse Resp BP Pulse Ox 37.1 C 116 H 25 H 122/62 95 03/06/23 09:36 03/06/23 09:28 03/06/23 09:28 03/06/23 09:28 03/06/23 09:28 Pain Score Most Recent Pain Score: Most Recent Pain Score Pain Level [Right Leg] 9 03/05/23 08:12 Pain Level [Right Hip] 4 03/05/23 00:04 Pain Level 4 03/06/23 09:36 Assessment Mental Status: Awake (Alert & Oriented to Patient Baseline) Airway and Respiratory Function: Abnormal Respiratory exam (See explanation) (Extubated on Nasal CPAP) Cardiovascular Function: Hemodynamically Stable (Vasopressors are off) Hydration Status: Adequately Hydrated Nausea & Vomiting: No Nausea or Vomiting Pain: Pain is tolerable per patient (Pt continues on IV Ketamine infusion protocol) Peripheral Nerve Block: Regional nerve block not resolved at time of post operative discharge Postoperative Comments:: Extubated to nasal CPAP Right IJ in-place and functional Left Art-line in-place. Pt awake and able to communicate needs. Hemodynamlc's are stable.
[2023-03-06] MEDS: Docusate Sodium 100 MG CAP 200 MG PO ×2 (12:20→21:27)
[2023-03-06] MEDS: Lactated Ringers 1,000 ML 80 ML IV (12:21)
[2023-03-06] MEDS: Polyethylene Glycol 3350 17 GM PACKET PO (12:29)
[2023-03-06] MEDS: Lactulose 20 GM/30 ML CUP 45 GM PO ×2 (12:31→21:26)
[2023-03-06] MEDS: Methadone 10 MG TAB 30 MG PO (13:27)
--- NOTE | 2023-03-06 16:00 | W.PM.PROGNOT ---
Date of Service Date of service: 03/06/23 Time of Service: 09:30 Assessment and Plan Assessment and plan (1) Closed right hip fracture: Start date: 03/05/23 Status: Acute Assessment and plan: Pathologic fracture of R femoral shaft. S/p R femur IM nail and bone bx 03/05/23 (Dr Saucedo). Continue ketamine gtt in the ICU. PT consulted. Qualifiers: Encounter type: initial encounter Qualified Code(s): S72.001A - Fracture of unspecified part of neck of right femur, initial encounter for closed fracture (2) Lung cancer metastatic to bone: Status: Chronic Assessment and plan: Lung cancer w/ mets to bone including R hip, resulting in pathologic fx. The patient had been on hospice, but had decided to come off of it and is full code at this time. Palliative care is consulted. The patient's pain regimen does not quite make sense. Her outpatient medication lists by hospice and her PCP do not match. She is clearly tolerating high doses of opioid medications, but we do need to try to consolidate her therapy. I will ask palliative care to help with this. (3) Right upper lobe consolidation: Status: Acute Assessment and plan: Could represent malignancy vs PNA. The patient is on empiric azithromycin and ceftriaxone. Encourage IS/acapella. I am not convinced she has PNA at this time - consider d/c'ing abx. (4) Chronic pain: Assessment and plan: As above On ketamin gtt for pain control at this time. Qualifiers: Chronic pain type: other chronic pain Qualified Code(s): G89.29 - Other chronic pain (5) Hypotension due to drugs: Start date: 03/05/23 Status: Acute Assessment and plan: The patient's [place] was removed this afternoon. Her MAPs have been adequate, and now she will be receiving PO. (6) ADHD: Status: Chronic Assessment and plan: Continue home methylphenidate Qualifiers: Attention deficit-hyperactivity disorder type: predominantly inattentive Qualified Code(s): F90.0 - Attention-deficit hyperactivity disorder, predominantly inattentive type (7) Hypothyroidism: Status: Chronic Assessment and plan: Continue levothyroxine. Qualifiers: Hypothyroidism type: acquired Qualified Code(s): E03.9 - Hypothyroidism, unspecified (8) PTSD (post-traumatic stress disorder): Status: Chronic Assessment and plan: No change in outpatient therapy (9) Generalized anxiety disorder: Status: Chronic Assessment and plan: No change to outpatient therapy (10) Restless leg syndrome: Status: Chronic Assessment and plan: Consider Gabapentin (11) DVT prophylaxis: Status: Acute Assessment and plan: SC enoxaparin (12) Discharge planning issues: Status: Acute Assessment and plan: Full code Keep in the ICU today PO trial Total Critical Care Time 45 minutes. Subjective Subjective Interval history since last seen: S/p R femur bone bx and intramedullary nailing yesterday. Came to the ICU post-op still intubated. Patient was extubated this morning. Has done well since. Remains on ketamin gtt. Not on vasopressors. At the time of my seeing her, the patient was still on the went undergoing a spontaneous breathing trial. She was communicative, answering questions, reporting 6/10 pain in her hip and her mouth/throat. She wanted the tube out. She was not dizzy, denied CP, SOB, nausea. Exam Narrative Exam Narrative: General: A pleasant female who is awake on the vent, answering questions, following commands, A&Ox3 HEENT: EOMI, MMM, ET/OG tubes in place Heart: RRR, mildly tachycardic, no m/r/g Lungs: CTAB anteriorly Abdomen: soft, nontender, nondistended Extremities: R hip incisions C/d/i. Objective Last Vital Signs Temp 37.0 C 03/06/23 13:52 Pulse 111 H 03/06/23 14:31 Resp 14 03/06/23 14:31 BP 108/75 03/06/23 14:31 Pulse Ox 97 03/06/23 14:31 Laboratory Results - last 24 hr 03/05/23 03/05/23 03/06/23 18:10 21:45 00:10 WBC RBC Hgb Hct MCV MCH MCHC RDW Plt Count MPV ABG Sample Site Left Radial Arterial Line ABG pH 7.36 7.36 ABG pCO2 46 H 46 H ABG pO2 71 L 73 L ABG HCO3 26 26 ABG Total CO2 24 24 ABG O2 Saturation 94 L 95 ABG Base Excess 1 0 Oxygen Liter Flow 45 FiO2 60 Sodium Potassium Chloride Carbon Dioxide Anion Gap BUN Creatinine Est GFR (CKD-EPI 2020) Glucose Calcium Magnesium Urine Color Yellow Urine Clarity Clear Urine pH 5.5 Ur Specific [place] 1.020 Urine Protein Negative Urine Ketones Negative Urine Blood Negative Urine Nitrite Negative Urine Bilirubin Negative Urine Urobilinogen 0.2 Ur Leukocyte Esterase Negative Urine Glucose Negative Add-On Test Request 03/06/23 05:50 WBC 9.86 RBC 3.65 L Hgb 10.3 L Hct 31.6 L MCV 87 MCH 28.2 MCHC 32.6 RDW 15.2 H Plt Count 275 MPV 9.5 ABG Sample Site ABG pH ABG pCO2 ABG pO2 ABG HCO3 ABG Total CO2 ABG O2 Saturation ABG Base Excess Oxygen Liter Flow FiO2 Sodium 139 Potassium 4.2 Chloride 106 Carbon Dioxide 27.2 Anion Gap 5.8 BUN 11 Creatinine 0.7 Est GFR (CKD-EPI 2020) 95.32 Glucose 125 H Calcium 8.2 L Magnesium 1.9 Urine Color Urine Clarity Urine pH Ur Specific [place] Urine Protein Urine Ketones Urine Blood Urine Nitrite Urine Bilirubin Urine Urobilinogen Ur Leukocyte Esterase Urine Glucose Add-On Test Request COMPLETED Objective Narrative Objective Narrative: CXR 03/05/23: Satisfactory positioning of central venous catheter. CXR 03/05/23: Satisfactory position of NG tube and endotracheal tube. Right internal jugular catheter projects low in the right atrium and should be pulled back. Improvement in aeration of right upper lobe. New left lower lobe opacity, infiltrate versus atelectasis. Time Spent with Patient Time Spent with Patient: 35-49 minutes Time was spent: preparing to see the patient(eg.review tests), obtaining and/or reviewing separately otained hiistory, ordering medications,tests, procedures, referring, communicating with other health ambulatory care nurse, indepentently interpreting results, counseling the patient and care coordination
[2023-03-06] MEDS: HYDROmorphone 4 MG TAB PO (16:13)
[2023-03-06] MEDS: Methadone 10 MG TAB 40 MG PO (23:09)
[2023-03-06] MEDS: Normal Saline Flush 10 ML SYR IVP (23:56)
[2023-03-06] MEDS: cefTRIAXone 2 GM/50 ML BAG IVPB (23:57)
[2023-03-07] VITALS (69 sets, daily range): BP systolic 105–145; BP diastolic 70–90; PULSE 99–113; RESP 10–25; TEMP 36.1–36.9; O2SAT 91–99
[2023-03-07] MEDS: Normal Saline 500 ML 30 ML IV
[2023-03-07] MEDS: Lactated Ringers 1,000 ML 80 ML IV ×2 (00:03→12:54)
[2023-03-07] MEDS: AZITHROMYCIN 500 MG in Normal Saline 250 ML 250 MG IVPB (01:09)
--- NOTE | 2023-03-07 04:58 | NUR.NOTE ---
Nursing Note: Per report from Sakina Rocha RN plan was to utilize Ketamine infusion as bridge for pain control until response from Fentanyl patch.
[2023-03-07] MEDS: Levothyroxine 25 MCG TAB PO (05:47)
[2023-03-07] MEDS: Ondansetron O.D.T. 4 MG TABEF PO (06:02)
[2023-03-07 06:30] LABS: Abs Immature Grans 0.03 10^3/uL (0.0-0.06); Absolute Basophil Count 0.03 10^3/uL (0.0-0.2); Absolute Eosinophil Count 0.01 10^3/uL (0.0-0.7); Absolute Lymphocyte Count 1.42 10^3/uL (1.2-3.4); Absolute Monocyte Count 0.73 10^3/uL (0.1-0.8); Absolute Neutrophil Count 4.67 10^3/uL (1.2-6.7); Basophils % 0.4; Eosinophils % 0.1; HGB 9.4 g/dL (11.2-15.7); Immature Grans % 0.4; Lymphocytes % 20.6; MCH 28.2 pg (27.0-33.0); MCHC 32.4 % (32.0-36.0); MCV 87 fL (80-95); Monocytes % 10.6; Neutrophils % 67.9; Platelet Count 255 10^3/uL (130-400); RBC 3.33 10^6/uL (3.93-5.22); RDW 15.5 % (11.7-14.6); RDW-SD 49.2 fL; WBC 6.89 10^3/uL (4.4-10.8)
[2023-03-07 06:44] LABS: Anion Gap 4.2 mmol/L (3-11); BUN 9 mg/dL (7-18); CO2 25.8 mmol/L (21.0-32.0); CREATININE 0.5 mg/dL (0.55-1.02); Chloride 105 mmol/L (98-107); Estimated GFR 103.38 (mL/min/1.73m2); Glucose 122 mg/dL (74-106); Magnesium 1.9 mg/dL (1.8-2.4); Potassium 4.3 mmol/L (3.5-5.1); Sodium 135 mmol/L (136-145)
[2023-03-07] MEDS: Vitamins B Comp w/C TAB 1 TAB PO (07:54)
[2023-03-07] MEDS: Docusate Sodium 100 MG CAP 200 MG PO (07:54)
[2023-03-07] MEDS: Cyanocobalamin 500 MCG TAB 1000 MCG PO (07:55)
[2023-03-07] MEDS: Methadone 10 MG TAB 50 MG PO (07:55)
[2023-03-07] MEDS: Methylphenidate 10 MG TAB PO (07:55)
[2023-03-07] MEDS: Dexamethasone 4 MG TAB PO (07:55)
[2023-03-07] MEDS: Pantoprazole 40 MG TABCR PO (07:55)
[2023-03-07] MEDS: Promethazine 25 MG TAB 50 MG PO ×2 (07:55→15:19)
[2023-03-07] MEDS: Enoxaparin 40 MG/0.4 ML SYR SC (07:56)
[2023-03-07] MEDS: Methadone 10 MG TAB 40 MG PO (10:43)
--- NOTE | 2023-03-07 11:39 | PT.INTREAT ---
PT Notes Visit Reasons: Pathologic fracture right femur,Metastatic lung Ca Date: 03/07/23 PRECAUTIONS: WBAT RLE when ready, fall, activity as tolerated SUBJECTIVE: Patient reports pain is managed by meds, pt able to converse and is awake but reports feeling very exhausted OBJECTIVE: pt in bed with attached to mutiple monitor, centravenous line, multiple picc line ? PAIN: no able to quantify, generalized manifestation VITALS: closely monitored by ICU nursing staff.? ? BED MOBILITY/TRANSFERS? Rolling L/R: not assessed Supine-sit: not assessed? Sit-supine: not assessed ? Sit-stand: not assessed ? Stand-sit: not assessed ? Bed-Chair: not assessed ? Chair-bed: not assessed Therapeutic activity [id number]: Pt received AAROM/PROM for bilateral UE shoulder, elbow, forearm and wrist all planes [id number] each, PNF d1/d2 bilaterally [id number], bilateral AAROM/PROM for the hip knee and left ankle all planes [id number] each with pt tolerating activity at partial range. ASSESSMENT:? Pt reports feeling tired after participating with therapeutic procedure, pt hoping she would be able to go home today, pt central venous line removed today prior to pt participating with therapy. PLAN: possible DC to home with HHPT and hospice. TREATMENT CODE/TIME: [id number], 30mins (10:35-11:05am)
[2023-03-07] MEDS: HYDROmorphone 4 MG TAB PO ×2 (12:20→19:04)
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
--- NOTE | 2023-03-07 13:42 | CMDISCH_ITS ---
Date of service: 03/07/23 Time of Service: 13:42 LACE Index Scoring Tool Questions: Length of Stay (in days): 2 Was the patient admitted via the E.D.?: Yes Comorbidities: Liver or Renal Disease and Metastatic Solid Tumor E.D. Visits: 1 Answers: Total Score: 11 Risk of Readmission: High Risk Care Management Discharge Plan Reason for Hospitalization: Pathologic fracture right femur, metastatic to bone to lung cancer Discharge Plan: Oneyda will be discharged home against medical advice. She requested to go home and be readmitted to hospice today but [facility] was unable to do a same day admission. She and her will meet with hospice at home tomorrow to discuss re-establishing care. The discharge is against medical advice as Oneyda does not have the equipment and support at home currently to make this a safe discharge. She is NWB on her right leg. In the hospital she is on a Ketamine drip for pain control; at home she will not have access to parenteral opioids, making continued pain control a challenge. Her owens ca theter will remain in place upon discharger. Oneyda does not have a janine lift at home nor does she have a hospital bed. She will transport via EMS coordinated by CM and follow up with her PCP as well as [facility]. Patient/Family Education Needs: Review of discharge instructions, pain management, activity, limitations, precautions, follow up plan, discuss Ask Me Three Services Needed at Discharge: Transportation (ambulance)
--- NOTE | 2023-03-07 13:43 | PDOC.ANES ---
Date of service: 03/07/23 Time of Service: 13:43 Anesthesia Note Report Anesthesia Note: RE: 24 hour follow-up for Ketamine infusion for pain control. Pt continues to be stable in ICU. Awake and alert with reasonable pain management. Plan is for patient to be discharged home on hospice care. Will discontinue Ketamine either on discharge or just prior to discharge. Ciara Aleman CRNA
[2023-03-07] MEDS: Methadone 10 MG TAB 30 MG PO (15:20)
== END 2023-03-07 19:26 | disposition left against medical advice (07) | DRG 477 ==
LOC: ER 03-05 02:57 → MS 03-05 03:26 → ICU 03-05 21:24
PROVIDERS: General Practice; Internal Medicine; Nurse Anesthetist, Certified Registered; Nurse Practitioner Acute Care; Student in an Organized Health Care Education/Training Program; Admitting Provider Family Medicine; Emergency Provider Student in an Organized Health Care Education/Training Program; PCP Family Medicine; Visit Provider Family Medicine
PROC: 0QSB06Z Reposition Right Lower Femur with Intramedullary Internal Fixation Device, Open Approach (ICD-10-PCS; CPT 27506; principal; 2023-03-05 15:15)
DX: M84.551A Pathological fracture in neoplastic disease, right femur, initial encounter for fracture (principal); J18.9 Pneumonia, unspecified organism; C34.90 Malignant neoplasm of unspecified part of unspecified bronchus or lung; C79.51 Secondary malignant neoplasm of bone; F33.9 Major depressive disorder, recurrent, unspecified; S72.001A Fracture of unspecified part of neck of right femur, initial encounter for closed fracture; G89.29 Other chronic pain; I95.2 Hypotension due to drugs; F90.0 Attention-deficit hyperactivity disorder, predominantly inattentive type; F43.10 Post-traumatic stress disorder, unspecified; E03.9 Hypothyroidism, unspecified; F41.1 Generalized anxiety disorder; G25.81 Restless legs syndrome; W19.XXXA Unspecified fall, initial encounter; Z79.891 Long term (current) use of opiate analgesic; Z99.81 Dependence on supplemental oxygen; F90.9 Attention-deficit hyperactivity disorder, unspecified type; R13.12 Dysphagia, oropharyngeal phase; F12.90 Cannabis use, unspecified, uncomplicated; M54.2 Cervicalgia; R33.9 Retention of urine, unspecified; R73.03 Prediabetes; F43.12 Post-traumatic stress disorder, chronic; F51.04 Psychophysiologic insomnia; F06.8 Other specified mental disorders due to known physiological condition; R35.0 Frequency of micturition; K58.9 Irritable bowel syndrome, unspecified; I10 Essential (primary) hypertension; K21.9 Gastro-esophageal reflux disease without esophagitis; Z87.891 Personal history of nicotine dependence; M54.16 Radiculopathy, lumbar region
CPT/HCPCS: 27506; 20245; 00123; 36415; 36556; 73552; 76942; 80048; 80053; 82805; 85027; 86850; 86900; 86901; 87637; 93005; 96365; 96367; 96375; 96376; 97163; 97530; 99223; 99285; J1650; 71045; 73060; 73501; 73502; 73700; 81003; 83735; 84443; 85025; 85610; 88304; 88307; 88361; 93010; 94003; 94667; 94668; 99239; 99291; J0171; J0456; J0690; J1100; J1170; J1885; J2250; J2405; J3490; J8540

== ENCOUNTER 2023-03-25 10:30 | Outpatient (REF) | payer MEDICARE, MEDICAID, SELFPAY ==
[2023-03-25 12:54] LABS: Bilirubin Negative (Negative); Blood Large (Negative); Clarity Cloudy (Clear); Glucose Negative (Negative); Ketones Negative (Negative); Leukocyte Esterase Trace (Negative); Nitrite Positive (Negative); Specific Gravity >= 1.030 (1.005-1.025); Urobilinogen 0.2 mg/dL (Up to 0.2); pH 5.5 (5-8)
[2023-03-25 13:01] LABS: Bacteria Many HPF (Negative); C & S Indicated? C&S Done As Ordered; Casts Negative LPF (Negative); Crystals Few Amorphous HPF (Negative); Epithelial Cells Rare HPF (Negative); Mucus Negative (Negative); RBC 20-50 HPF (0-2)
== END 2023-03-25 10:31 | disposition home or self-care (01) ==
LOC: NCHCN 10:30
PROVIDERS: PCP Family Medicine; Visit Provider Family Medicine
DX: N32.89 Other specified disorders of bladder (principal); R82.998 Other abnormal findings in urine; N39.0 Urinary tract infection, site not specified
CPT/HCPCS: 81003; 81015; 87086

== ENCOUNTER 2023-04-15 13:19 | Outpatient (REF) | payer MEDICARE, MEDICAID, SELFPAY ==
[2023-04-15 15:18] LABS: Bilirubin Small (Negative); Blood Large (Negative); Clarity Cloudy (Clear); Glucose Negative (Negative); Ketones 80 mg/dL (Negative); Leukocyte Esterase Small (Negative); Nitrite Positive (Negative); Specific Gravity >= 1.030 (1.005-1.025)
[2023-04-15 15:50] LABS: Bacteria Moderate HPF (Negative); C & S Indicated? C&S Done As Ordered; Crystals Few Calcium Oxalate HPF (Negative); Epithelial Cells Rare HPF (Negative); Mucus Heavy (Negative); Other Cells Rare Transitional (Negative); RBC >50 HPF (0-2); WBC 20-50 HPF (0-5)
== END 2023-04-15 13:20 | disposition home or self-care (01) ==
LOC: LBN 13:19
PROVIDERS: PCP Family Medicine; Visit Provider Family Medicine
DX: N39.0 Urinary tract infection, site not specified (principal)
CPT/HCPCS: 87077; 81003; 81015; 87086; 87186